=== PATIENT | male | born 1955 | race American Indian/Alaskan Native ===

== ENCOUNTER 2017-10-06 09:56 | Outpatient (CLI) | payer MEDICARE ==
--- NOTE | 2017-10-06 23:40 | Cat Scan Report ---
FINAL REPORT PROCEDURE: CT ABDOMEN PELVIS WO CON TECHNIQUE: Computerized axial tomography of the abdomen and pelvis was performed without intravenous contrast. This study is performed without intravascular contrast material and its sensitivity for abdominal and pelvic pathology, including neoplasms, inflammation, abscess, free fluid, thrombosis, arterial dissection and infarction, is reduced compared with a contrast enhanced study. HISTORY: MALIGNANT NEOPLASM OF PROSTATE COMPARISON: 08/13/2016 FINDINGS: Liver, spleen, and adrenal glands are within normal limits. Bilateral kidneys demonstrate normal density without hydronephrosis. There is a 2 millimeter nonobstructive calculus in the right kidney. Aorta is of normal caliber. There is no free fluid or free air. Gallbladder is contracted. Small bowel loops are within normal limits. Moderate degree residual stool is noted. Appendix is not distinctly visualized. There are no inflammatory changes in the right lower quadrant. Mild degree degenerative changes are noted involving the lumbar spine.. IMPRESSION: 2 millimeter nonobstructive calculus right kidney. Moderate degree residual stool. Contracted gallbladder. Otherwise no obvious acute intra-abdominal or pelvic pathology as visualized on this noncontrast study..
--- NOTE | 2017-10-07 08:22 | Nuclear Medicine Report ---
BONE SCAN: History: Staging of prostate cancer. Comparison: No previous nuclear medicine scan. Correlation is made with a CT abdomen pelvis without contrast performed the same day. After injection of isotope, gamma camera imaging of the bony system was done. There is a normal uptake of isotope throughout the bony structures without areas of pathologically increased or decreased uptake. Mild degenerative uptake is noted throughout the spine. Normal uptake in the urinary system is seen. IMPRESSION: No evidence for metastatic disease to the bones.
== END 2017-10-06 09:57 | disposition home or self-care (01) ==
LOC: NM 09:56
PROVIDERS: ATTEND Urology
DX: C61 Malignant neoplasm of prostate (principal); N20.0 Calculus of kidney; K82.8 Other specified diseases of gallbladder; M47.896 Other spondylosis, lumbar region
CPT/HCPCS: 74176; 78306; A9503

== ENCOUNTER 2017-11-21 06:01 | Observation (INO) | payer MEDICARE ==
[2017-11-15 11:46] LABS: Basophils % (Auto) 0.7 % (0.0-1.8); Eosinophils # (Auto) 0.1 K/mm3 (0.0-0.4); Eosinophils % (Auto) 2.2 % (0.0-4.3); Hematocrit 42.1 % (35.5-45.6); Hemoglobin 13.6 gm/dl (11.8-15.2); Lymphocytes # (Auto) 1.9 K/mm3 (1.2-5.4); Lymphocytes % (Auto) 30.3 % (13.4-35.0); Mean Corpuscular HGB Conc 32 % (32-34); Mean Corpuscular Hemoglobin 28 pg (28-32); Mean Corpuscular Volume 88 fl (84-94); Monocytes # (Auto) 0.6 K/mm3 (0.0-0.8); Monocytes % (Auto) 9.1 % (0.0-7.3); Platelet Count 243 K/mm3 (140-440); Red Cell Distribution Width 14.9 % (13.2-15.2)
--- NOTE | 2017-11-15 11:54 | Anesthesia Consultation ---
Anesthesia Consult and Med Hx Date of service: 11/21/17 - Airway Anesthetic Teeth Evaluation: Good ROM Head & Neck: Adequate Mental/Hyoid Distance: Adequate Mallampati Class: Class II Intubation Access Assessment: Probably Good - Pulmonary Exam CTA: Yes - Cardiac Exam Cardiac Exam: RRR - Pre-Operative Health Status ASA Pre-Surgery Classification: ASA3 Proposed Anesthetic Plan: General, Epidural Nerve Block: TAP - Pulmonary Hx Smoking: No Hx Sleep Apnea: No (DAVY PRE SCREEN HIGH RISK.) - Cardiovascular System Hx Hypertension: Yes (X 5 YRS) Hx Heart Murmur: Yes (CAUSES NO PROBLEMS) - Central Nervous System CVA: Yes (2015- NO DEFICITS , ONLY ON ASA) Hx Psychiatric Problems: Yes (anxiety. not on meds) - Endocrine Hx Insulin Dependent Diabetes: Yes - Other Systems Hx Cancer: Yes (prostrate cancer) - Additional Comments Anesthesia Medical History Comments: Glaucoma, cataract, HLD, benign heart murmur
[2017-11-15 11:56] LABS: INR 0.92 (0.87-1.13)
[2017-11-15 11:57] LABS: Partial Thromboplastin Time 26.2 Sec. (24.2-36.6)
[2017-11-15 12:02] LABS: Alanine Aminotransferase 19 units/L (7-56); Albumin 4.2 g/dL (3.9-5); BUN/Creatinine Ratio 21; Blood Urea Nitrogen 21 mg/dL (9-20); Calcium 9.6 mg/dL (8.4-10.2); Hemolysis Index 19
[~2017-11-21 06:01] MED LIST: ANCEF/STERILE WATER 2 GM/20 ML IV NR
[2017-11-21] MEDS ORDERED: NACL BACTERIOSTATIC INFILTRATI ONE (06:27)
[2017-11-21] MEDS ORDERED: DECADRON IV NR (07:10)
[2017-11-21] MEDS ORDERED: NEURONTIN PO SCH (07:15)
[2017-11-21] MEDS ORDERED: VERSED IV NR (07:15)
[2017-11-21] MEDS ORDERED: XYLOCAINE 1% 20 mL INFILTRATI NR (07:15)
[2017-11-21] MEDS ORDERED: SUBLIMAZE IV SCH (07:15)
[2017-11-21] MEDS ORDERED: NACL 0.9% 1000 ML 1,000 ML IV SCH ×2 (07:18→12:00)
[2017-11-21] MEDS ORDERED: MARCAINE 0.5% 30 ML INFILTRATI ONE ×2 (07:19→07:20)
[2017-11-21] MEDS ORDERED: CLONIDINE 1,000 MCG/10 ML VIAL EP ONE (07:20)
[2017-11-21] MEDS ORDERED: SUBLIMAZE ONE (07:22)
[2017-11-21] MEDS ORDERED: METHYLENE BLUE ONE (07:28)
[2017-11-21] MEDS ORDERED: THROMBIN (BOVINE) TP ONE ×2 (07:54→10:30)
[2017-11-21] MEDS ORDERED: ACD-A 500 ML IV ONE (07:54)
[2017-11-21] MEDS ORDERED: ZEMURON IV ONE (07:54)
[2017-11-21] MEDS ORDERED: CALCIUM CHLORIDE IV ONE ×2 (07:54→10:29)
[2017-11-21] MEDS ORDERED: XYLOCAINE MPF 2% ONE (07:54)
[2017-11-21] MEDS ORDERED: DIPRIVAN 10 MG/ML IV ONE (07:55)
[2017-11-21] MEDS ORDERED: DILAUDID ONE ×2 (07:55→12:31)
[2017-11-21] MEDS ORDERED: ePHEDrine SULFATE ONE (08:49)
[2017-11-21] MEDS ORDERED: NEO SYNEPHRINE/NS Syringe(OR USE) IV ONE (08:50)
[2017-11-21] MEDS ORDERED: ZOFRAN ONE (09:24)
[2017-11-21] MEDS ORDERED: NACL 0.9% IR ONE (10:28)
[2017-11-21] MEDS ORDERED: ACD-A IV ONE (10:29)
[2017-11-21] MEDS ORDERED: WATER FOR IRRIG STERILE IR ONE (10:29)
[2017-11-21] MEDS ORDERED: METHYLENE BLUE IV ONE (10:30)
[2017-11-21] MEDS ORDERED: D50W (25GM) Syringe IV PRN ×2 (11:12→11:19)
[2017-11-21] MEDS ORDERED: AMBIEN PO PRN (11:12)
[2017-11-21] MEDS ORDERED: NARCAN 0.4 MG/1 ML IV PRN (11:12)
[2017-11-21] MEDS ORDERED: ZOFRAN IV PRN (11:12)
[2017-11-21] MEDS ORDERED: MORPHINE IV PRN (11:12)
--- NOTE | 2017-11-21 11:12 | Short Stay Summary ---
Short Stay Documentation Date of service: 11/21/17 - History H&P: obtained from office - Allergies and Medications Current Medications: Allergies No Known Allergies Allergy (Verified 08/13/16 08:18) Home Medications Medication Instructions Recorded Confirmed Last Taken Type Aspirin BABY CHEW TAB 81 mg PO QAM 12/12/15 11/08/17 11/07/17 History Atorvastatin 80 mg PO QHS 12/12/15 11/08/17 11/20/17 17:00 History Lantus VIAL 23 units SQ QHS 12/12/15 11/21/17 11/19/17 History Lisinopril 20 mg PO QHS 12/12/15 11/08/17 11/20/17 17:00 History Metformin HCl 1,000 mg PO BID 12/12/15 11/08/17 11/20/17 17:00 History Ibuprofen [Motrin] 600 mg PO Q8H PRN #30 tablet 12/13/15 11/08/17 11/07/17 Rx Latanoprost 0.005% [Xalatan 0.005%] 1 drop OP QPM 11/15/17 11/15/17 11/20/17 17: 00 History Active Medications Cefazolin Sodium (Ancef/Sterile Water 2 Gm/20 Ml) 2 gm IV PREOP NR Stop: 11/21/17 23:59 Celecoxib (Celebrex) 200 mg PO PREOP NR Stop: 11/21/17 23:59 Last Admin: 11/21/17 07:25 Dose: 200 mg Dexamethasone (Decadron) 8 mg IV ONCE NR Stop: 11/21/17 14:00 Gabapentin (Neurontin) 600 mg PO PREOP GINNY Stop: 11/21/17 23:59 Last Admin: 11/21/17 07:25 Dose: 600 mg Sodium Chloride (Nacl 0.9% 1000 Ml) 1,000 mls @ 100 mls/hr IV DIRECT GINNY Stop: 11/21/17 23:59 Last Admin: 11/21/17 07:30 Dose: 100 mls/hr Lidocaine (Xylocaine 1% 20 Ml) 10 ml INFILTRATI PREOP NR Stop: 11/21/17 23:59 Midazolam HCl (Versed) 2 mg IV PREOP NR Stop: 11/21/17 23:59 Last Admin: 11/21/17 07:30 Dose: 2 mg - Brief post op/procedure progress note Date of procedure: 11/21/17 Pre-op diagnosis: prostate cancer Post-op diagnosis: same Procedure: robotic prostatectomy Anesthesia: GETA Surgeon: NISHANT TATUM Estimated blood loss: other (250cc) Pathology: list (prostate) Specimen disposition: to lab Condition: stable - Hospital course Hospital course: chai arriaga,post op info on chart daughter at bedside aleksandra removed - Disposition Condition at discharge: Stable Short Stay Discharge Plan Follow up with: SEBASTIÁN UNDERWOOD MD [Primary Care Provider] - 7 Days
[2017-11-21] MEDS: HumuLIN R SUB-Q SCH ×2 (11:18→23:35)
[2017-11-21] MEDS ORDERED: NACL 0.9% 1000 ML 1,000 ML ONE (11:47)
[2017-11-21] MEDS ORDERED: ANCEF/NS 1 GM/50 ML 1 GM/50 ML BAG IV SCH (12:00)
[2017-11-21] MEDS ORDERED: DILAUDID IV PRN ×2 (12:33→12:35)
--- NOTE | 2017-11-21 12:33 | Anesthesia Day of Surgery ---
Anesthesia Day of Surgery - Day of Surgery Patient Examined: Yes Patient H&P Reviewed: Yes Patient is NPO: Yes
--- NOTE | 2017-11-21 12:33 | Post Anesthesia Evaluation ---
- Post Anesthesia Evaluation Patient Participated: Yes Airway Patent: Yes Stable Respiratory Function: Yes Nausea/Vomiting: No Temp > 96.8F: Yes Pain Manageable: Yes Adequeate Hydration: Yes Anesthesia Complications: No Block Receding Appropriately: Yes Patient on Ventilator: No
--- NOTE | 2017-11-21 14:57 | Consultation ---
History of Present Illness - Reason for Consult Consult date: 11/21/17 medical management Requesting physician: NISHANT TATUM - History of Present Illness 62 year-old presents for robotic prostatectomy . Patient is status post robotic prostatectomy. Patient doing well postop. No shortness of breath Past History Past Medical History: diabetes, hypertension, hyperlipidemia Past Surgical History: Other (robotic prostatectomy) Social history: lives with family, full code Family history: hypertension Medications and Allergies Allergies Allergy/AdvReac Type Severity Reaction Status Date / Time No Known Allergies Allergy Verified 08/13/16 08:18 Home Medications Medication Instructions Recorded Confirmed Last Taken Type Aspirin BABY CHEW TAB 81 mg PO QAM 12/12/15 11/08/17 11/07/17 History Atorvastatin 80 mg PO QHS 12/12/15 11/08/17 11/20/17 17:00 History Lantus VIAL 23 units SQ QHS 12/12/15 11/21/17 11/19/17 History Lisinopril 20 mg PO QHS 12/12/15 11/08/17 11/20/17 17:00 History Metformin HCl 1,000 mg PO BID 12/12/15 11/08/17 11/20/17 17:00 History Ibuprofen [Motrin] 600 mg PO Q8H PRN #30 tablet 12/13/15 11/08/17 11/07/17 Rx Latanoprost 0.005% [Xalatan 0.005%] 1 drop OP QPM 11/15/17 11/15/17 11/20/17 17: 00 History Active Meds: Active Medications Acetaminophen/Hydrocodone Bitart (Jewell 5/325) 2 each PO Q4H PRN PRN Reason: Pain, Moderate (4-6) Atorvastatin Calcium (Lipitor) 80 mg PO QHS [facility] Cefazolin Sodium (Ancef/Sterile Water 2 Gm/20 Ml) 2 gm IV PREOP NR Stop: 11/21/17 23:59 Celecoxib (Celebrex) 200 mg PO PREOP NR Stop: 11/21/17 23:59 Last Admin: 11/21/17 07:25 Dose: 200 mg Dextrose (D50w (25gm) Syringe) 50 ml IV PRN PRN PRN Reason: Hypoglycemia Dextrose (D50w (25gm) Syringe) 50 ml IV PRN PRN PRN Reason: Hypoglycemia Gabapentin (Neurontin) 600 mg PO PREOP GINNY Stop: 11/21/17 23:59 Last Admin: 11/21/17 07:25 Dose: 600 mg Hydromorphone HCl (Dilaudid) 0.5 mg IV Q10MIN PRN PRN Reason: Pain , Severe (7-10) Last Admin: 11/21/17 12:29 Dose: 0.5 mg Sodium Chloride (Nacl 0.9% 1000 Ml) 1,000 mls @ 100 mls/hr IV DIRECT GINNY Stop: 11/21/17 23:59 Last Admin: 11/21/17 07:30 Dose: 100 mls/hr Sodium Chloride (Nacl 0.9% 1000 Ml) 1,000 mls @ 100 mls/hr IV DIRECT GINNY Cefazolin Sodium 1 gm/ Sodium (Chloride) 20 mls @ 2 mls/min IV Q8H GINNY Stop: 11/21/17 23:09 Insulin Glargine (Lantus) 23 units SUB-Q QHS [facility] Insulin Human Regular (Humulin R) 0 units SUB-Q AC GINNY; Protocol Lidocaine (Xylocaine 1% 20 Ml) 10 ml INFILTRATI PREOP NR Stop: 11/21/17 23:59 Lisinopril (Zestril) 20 mg PO HS [facility] Metformin HCl (Glucophage) 1,000 mg PO BIDDIAB [facility] Midazolam HCl (Versed) 2 mg IV PREOP NR Stop: 11/21/17 23:59 Last Admin: 11/21/17 07:30 Dose: 2 mg Morphine Sulfate (Morphine) 2 mg IV Q4H PRN PRN Reason: Pain, Moderate (4-6) Naloxone HCl (Narcan 0.4 Mg/1 Ml) 0.1 mg IV Q2MIN PRN PRN Reason: Res Rate </= 8 or 02 SAT < 92% Ondansetron HCl (Zofran) 4 mg IV Q8H PRN PRN Reason: Nausea And Vomiting Zolpidem Tartrate (Ambien) 5 mg PO QHS PRN PRN Reason: Sleep Review of Systems All systems: negative Constitutional: no weight loss, no weight gain, no fever, no chills, no sweats, no night sweats Ears, nose, mouth and throat: no dysphagia, no hoarseness, no sore throat, no swelling in mouth, no swelling in throat, no odynophagia Cardiovascular: no chest pain, no orthopnea, no palpitations, no rapid/ irregular heart beat, no edema, no syncope, no lightheadedness, no shortness of breath Respiratory: no cough, no cough with sputum, no excessive sputum, no hemoptysis , no shortness of breath, no dyspnea on exertion Gastrointestinal: no abdominal pain, no nausea, no vomiting, no diarrhea, no constipation, no change in bowel habits, no hematemesis, no coffee ground emesis Genitourinary Male: hematuria, no dysuria, no flank pain, no discharge, no urinary frequency, no urinary hesitancy, no nocturia Rectal: no pain Musculoskeletal: no neck stiffness, no neck pain, no shooting arm pain, no arm numbness/tingling, no low back pain, no shooting leg pain, no leg numbness/ tingling, no redness of joints Integumentary: no rash, no pruritis, no redness, no sores, no wounds, no jaundice, no boils, no blisters Neurological: no seizures, no syncope Psychiatric: no anxiety, no memory loss, no change in sleep habits, no sleep disturbances, no insomnia, no hypersomnia, no change in appetite, no change in libido, no suicidal ideation, no disorientation, no hallucinations Endocrine: no cold intolerance, no heat intolerance, no polyphagia, no excessive thirst, no polydipsia, no polyuria, no nocturia, no excessive sweating , no flushing, no weight change Hematologic/Lymphatic: no easy bruising, no easy bleeding Allergic/Immunologic: no urticaria, no allergic rhinitis, no wheezing Exam - Physical Exam Narrative exam: Patient lying in bed comfortably - Constitutional Vitals: Temp Pulse Resp BP Pulse Ox 98.0 F 76 16 105/59 96 11/21/17 13:34 11/21/17 13:34 11/21/17 13:34 11/21/17 13:34 11/21/17 13:34 General appearance: Present: no acute distress, well-nourished - EENT Eyes: Present: PERRL ENT: hearing intact, clear oral mucosa - Neck Neck: Present: supple, normal ROM - Respiratory Respiratory effort: normal Respiratory: bilateral: CTA - Cardiovascular Heart rate: 70 Rhythm: regular (70) Heart Sounds: Present: S1 & S2. Absent: rub, click - Extremities Extremities: no ischemia, pulses intact, pulses symmetrical, No edema Peripheral Pulses: within normal limits - Abdominal General gastrointestinal: Present: soft, non-tender, non-distended, normal bowel sounds Male genitourinary: Present: normal - Rectal Rectal Exam: deferred - Integumentary Integumentary: Present: clear, warm, dry - Musculoskeletal Musculoskeletal: gait normal, strength equal bilaterally - Psychiatric Psychiatric: appropriate mood/affect, intact judgment & insight - Neurologic Neurologic: CNII-XII intact, moves all extremities - Allied Health Allied health notes reviewed: nursing, case management Results - Labs CBC & Chem 7: 11/15/17 11:30 11/15/17 11:30 Labs: Abnormal lab results 11/21/17 11/21/17 Range/Units 06:47 11:38 POC Glucose 113 H 157 H (70-105) Assessment and Plan - Patient Problems (1) Deficient knowledge of robotic prostatectomy Current Visit: Yes Status: Acute (2) S/P prostatectomy Current Visit: Yes Status: Acute Plan to address problem: Status post robotic prostatectomy. Postop patient doing well. 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 Check A1c and adjust medication accordingly (5) Hyperlipidemia Current Visit: Yes Status: Chronic Qualifiers: Hyperlipidemia type: mixed hyperlipidemia Qualified Code(s): E78.2 - Mixed hyperlipidemia Plan to address problem: Continue statins (6) DVT prophylaxis Current Visit: Yes Status: Acute Plan to address problem: no heparin Lovenox at this time because of the hematuria On the SCDs
[2017-11-21] MEDS ORDERED: ceFAZolin 1 GM in NACL 0.9% 20 ML IV SCH (15:00)
[2017-11-21] MEDS: HumaLOG SUB-Q SCH ×2 (17:05→22:13)
[2017-11-21] MEDS: GLUCOPHAGE PO SCH (19:04)
--- NOTE | 2017-11-21 20:06 | Operative Report ---
PREOPERATIVE DIAGNOSIS: Prostate cancer, PSA 32, Ayan score 6 (2 of 14 cores). POSTOPERATIVE DIAGNOSES: Prostate cancer, PSA 32, Ayan score 6 (2 of 14 cores). PROCEDURE: Robotic-assisted laparoscopic prostatectomy. SURGEON: Norris Macias M.D. UNINDENTURED APPRENTICE: Ira Nixon. ANESTHESIA: General. ESTIMATED BLOOD LOSS: 250 mL. FLUIDS: Crystalloid 125 mL of Cell Saver. COMPLICATIONS: No complications. INDICATIONS: This 62-year-old gentleman has been seen in the office for several years. We followed with his PSA for years. He was last seen on 09/05/2014 for a PSA of 5.3. Biopsy at that time was negative. He represented in August of this year with a PSA of 32. Transrectal ultrasound revealed Ayan 6 adenocarcinoma of the prostate in 2 of 14 cores, [address] bone scan negative except for degenerative joint disease of the spine. Options were discussed. The patient agreed to proceed with surgical intervention. DESCRIPTION OF PROCEDURE: The patient was taken to the operative suite, placed in a supine position. After adequate general anesthesia, he was placed in a modified dorsal lithotomy position. Ira Nixon, surgical dressing maker, was present throughout the procedure, who was at the bedside to assist with dissection. Aguilar catheter was placed on the operative field. A 1 cm supraumbilical incision was made. Towel clips were placed. Anterior traction was performed. A drop test with a Veress needle was negative. Opening pressure was 1 cm of water. Insufflation to 15 cm of water was performed without difficulty. 15 cm cephalad to pubic symphysis was marked in the midline. The patient had a narrow pelvis and actually 8 cm lateral and additional 8 cm lateral was used to place the robotic ports. These areas were marked. 0-degree lens was placed in the supraumbilical incision under direct vision. No intraabdominal injury could be appreciated. No signs of metastasis. The robotic ports were placed on the left side without difficulty. They were 8 mm in size, right side was one robotic port followed by a 10 mm and a 5 mm helper port that were placed under direct vision. Robotic cart was docked between the legs. Second, the posterior aspect of the bladder was retracted anteriorly with the third arm. Second arch was scored transversely exposing the seminal vesicles and vas deferens, which were dissected out. Dissection was taken to the apex of the prostate. Vas deferens was transected bilaterally. Next, attention was taken to the anterior abdominal wall. The lateral umbilical ligament was scored and then across the midline, pubic rami were identified bilaterally. Bladder flap was dropped. Dorsal vein complex was exposed. It was tied off with 0 Vicryl in a [id number] fashion. Endopelvic fascia was opened bilaterally. Dissection to the bladder neck was performed. Aguilar catheter was manipulated to expose the bladder neck. Anterior bladder neck was transected. The Aguilar was deflated and then used for anterior traction. The patient had a significant median lobe and methylene blue was administered intravenously to identify the ureteral orifices without difficulty. 0 Vicryl helper stitch was placed at the 12 o'clock position of the bladder. Posterior bladder neck was transected exposing the seminal vesicles and vas deferens. Lateral pedicles were sharply dissected using the vic, occasional cautery to control bleeding. The prostate was dissected free from the apex and placed in the EndoCatch bag and retracted laterally. Next, attention was taken at the bladder neck where it was tapered down to accommodate an 18-[place] Aguilar catheter, 2-0 Vicryl in interrupted fashion was used. Double armed V-Loc stitch was placed at the 6 o'clock position of the bladder neck and corresponding aspect of the urethra. Running stitch was performed bilaterally. A new Aguilar catheter was placed in the bladder. Anastomotic stitch was cinched down. 15 mL of water in the balloon, the bladder was irrigated. No clots. V-Loc stitch was then placed at the anterior abdominal wall to aid with continence. The needles were cut and removed. The anastomosis was injected with platelet-rich plasma, platelet poor plasma in addition to platelet membrane. Adequate hemostasis could be appreciated. Casper-Oro drain was brought out through the #2 right-sided port without difficulty. The drain was tied into position with a 2-0 silk. Robotic cart was undocked. The patient was placed in a supine position. The supraumbilical incision was extended to remove the prostate. That incision was closed with #1 Vicryl in a [id number] fashion. Skin was closed with 4-0 Monocryl in interrupted fashion. Aguilar catheter site port was folded over and tied with 0 silk in interrupted fashion to prevent removal. The patient was extubated and taken to recovery room in stable condition. He will be observed overnight and go home on [place] and Cipro. JOB# [id number] VASQUEZ/NTS
[2017-11-21] MEDS: NORCO 5/325 PO PRN (20:45)
[2017-11-21] MEDS ORDERED: LANTUS SUB-Q SCH (22:00)
[2017-11-21] MEDS ORDERED: INSULIN GLARGINE SQ SCH (22:00)
[2017-11-21] MEDS ORDERED: NON-FORMULARY (Lisinopril 20 MG) PO SCH (22:00)
[2017-11-21] MEDS ORDERED: NON-FORMULARY (Atorvastatin 80 MG) PO SCH (22:00)
[2017-11-21] MEDS ORDERED: ZESTRIL PO SCH (22:00)
[2017-11-21] MEDS ORDERED: METFORMIN HCL 1000 MG PO SCH (22:00)
[2017-11-22] MEDS: ceFAZolin 1 GM in NACL 0.9% 20 ML IV SCH ×2 (01:20→10:06)
[2017-11-22 05:11] LABS: Basophils % (Auto) 0.1 % (0.0-1.8); Hematocrit 35.9 % (35.5-45.6); Hemoglobin 11.9 gm/dl (11.8-15.2); Lymphocytes # (Auto) 0.8 K/mm3 (1.2-5.4); Lymphocytes % (Auto) 7.3 % (13.4-35.0); Mean Corpuscular HGB Conc 33 % (32-34); Mean Corpuscular Hemoglobin 29 pg (28-32); Mean Corpuscular Volume 87 fl (84-94); Monocytes # (Auto) 0.8 K/mm3 (0.0-0.8); Monocytes % (Auto) 7.5 % (0.0-7.3); Platelet Count 189 K/mm3 (140-440); Red Blood Count 4.11 M/mm3 (3.65-5.03); Red Cell Distribution Width 14.3 % (13.2-15.2)
[2017-11-22 05:31] LABS: BUN/Creatinine Ratio 24; Blood Urea Nitrogen 24 mg/dL (9-20); Calcium 7.9 mg/dL (8.4-10.2); Hemolysis Index 6
[2017-11-22] MEDS: HumaLOG SUB-Q SCH (07:33)
[2017-11-22] MEDS: HumuLIN R SUB-Q SCH (07:34)
[2017-11-22 09:17] VITALS: BP 111/63
[2017-11-22] MEDS: GLUCOPHAGE PO SCH (09:29)
[2017-11-22] MEDS: NORCO 5/325 PO PRN (09:29)
== END 2017-11-22 12:00 | disposition home or self-care (01) ==
LOC: OR 06:01 → 3B-SURG 11:12
PROVIDERS: ADMIT Urology; ATTEND Urology
DX: C61 Malignant neoplasm of prostate (principal); I10 Essential (primary) hypertension; E11.9 Type 2 diabetes mellitus without complications; E78.5 Hyperlipidemia, unspecified; F41.9 Anxiety disorder, unspecified; Z80.42 Family history of malignant neoplasm of prostate; Z86.73 Personal history of transient ischemic attack (TIA), and cerebral infarction without residual deficits
CPT/HCPCS: 36415; 55866; 80048; 80053; 82962; 83036; 85025; 85610; 85730; 86850; 86900; 86901; 88309; 96372; 96374; 96375; 96376; A4217; A9270; G0378; J0690; J0735; J1100; J1170; J2250; J2370; J2405; J2704; J7030; Q9968; J1815; J3010

== ENCOUNTER 2017-12-12 09:16 | Outpatient (CLI) | payer MEDICARE ==
--- NOTE | 2017-12-12 14:22 | Cat Scan Report ---
CT ABDOMEN PELVIS WITHOUT CONTRAST: HISTORY: Malignant neoplasm of prostate. COMPARISON: 10/06/17. TECHNIQUE: Helical CT in 1.25mm intervals without IV contrast. Sagittal and coronal reconstructions. FINDINGS: Lung bases: Well aerated. Normal heart size. Liver: Normal. Biliary system: Normal. Pancreas: Normal. Spleen: Normal. Kidneys/ureters/bladder: The kidneys are normal size, contour and position. 2 tiny calyceal stones are noted in the mid to inferior right kidney. The left kidney, ureters and bladder are unremarkable. Adrenal glands: Normal. Aorta: Normal. Intestines: There is moderate to severe fecal retention throughout the length of the colon. No evidence for bowel obstruction or focal inflammation. Appendix: Not confidently identified, correlate with surgical history. Pelvic viscera: Normal. Ascites: None. Adenopathy: None. Musculoskeletal: There is moderate thoracolumbar spondylosis. No suspicious bony lesion or fracture is identified. IMPRESSION: No evidence for metastatic to the abdomen or pelvis. No bony lesions are detected Right nephrolithiasis, nonobstructing. Constipation.
== END 2017-12-12 09:17 | disposition home or self-care (01) ==
LOC: CT 09:16
PROVIDERS: ATTEND Urology
DX: C61 Malignant neoplasm of prostate (principal); N39.0 Urinary tract infection, site not specified; N20.0 Calculus of kidney; M47.895 Other spondylosis, thoracolumbar region; K59.00 Constipation, unspecified; I10 Essential (primary) hypertension; E11.9 Type 2 diabetes mellitus without complications
CPT/HCPCS: 74176

== ENCOUNTER 2018-02-16 11:08 | Emergency (ER) | payer MEDICARE ==
--- NOTE | 2018-02-16 14:41 | Emergency Department Report ---
ED Dizziness HPI - General Chief Complaint: Dizziness Stated Complaint: DIZZINESS Time Seen by Provider: 02/16/18 14:01 Source: patient Mode of arrival: Ambulatory Limitations: No Limitations - History of Present Illness Initial Comments: Patient is a 62-year-old male who states he's had dizziness off and on for 2-3 months. Patient states sometimes it feels as though he spent a time and then it goes away on its own. It lasts for anywhere from several seconds to several minutes at a time. Patient denies any ringing of the ears headache and sinus pressure she called "congestion and fevers chills Or weakness. Patient does have a history of diabetes but his blood sugars under control. Patient did have a stroke several years ago and has seen a neurologist in the past but has not seen anyone for this the symptoms. - Related Data Home Medications Medication Instructions Recorded Confirmed Last Taken Aspirin BABY CHEW TAB 81 mg PO QAM 12/12/15 11/08/17 11/07/17 Atorvastatin 80 mg PO QHS 12/12/15 11/08/17 11/20/17 17:00 Lantus VIAL 23 units SQ QHS 12/12/15 11/21/17 11/19/17 Lisinopril 20 mg PO QHS 12/12/15 11/08/17 11/20/17 17:00 Metformin HCl 1,000 mg PO BID 12/12/15 11/08/17 11/20/17 17:00 Latanoprost 0.005% [Xalatan 0.005%] 1 drop OP QPM 11/15/17 11/15/17 11/20/17 17: 00 Previous Rx's Medication Instructions Recorded Last Taken Type Ibuprofen [Motrin] 600 mg PO Q8H PRN #30 tablet 12/13/15 11/07/17 Rx Meclizine [Antivert] 25 mg PO TID PRN #20 tablet 02/16/18 Unknown Rx Allergies Allergy/AdvReac Type Severity Reaction Status Date / Time No Known Allergies Allergy Verified 08/13/16 08:18 ED Review of Systems ROS: Stated complaint: DIZZINESS Other details as noted in HPI Comment: All other systems reviewed and negative ED Past Medical Hx - Past Medical History Hx Hypertension: Yes (X 5 YRS) Hx CVA: Yes Hx Diabetes: Yes Hx HIV: No Additional medical history: HIGH CHOLESTEROL - Surgical History Additional Surgical History: left shoulder x 2 - Social History Smoking Status: Current Every Day Smoker Substance Use Type: None - Medications Home Medications: Home Medications Medication Instructions Recorded Confirmed Last Taken Type Aspirin BABY CHEW TAB 81 mg PO QAM 12/12/15 11/08/17 11/07/17 History Atorvastatin 80 mg PO QHS 12/12/15 11/08/17 11/20/17 17:00 History Lantus VIAL 23 units SQ QHS 12/12/15 11/21/17 11/19/17 History Lisinopril 20 mg PO QHS 12/12/15 11/08/17 11/20/17 17:00 History Metformin HCl 1,000 mg PO BID 12/12/15 11/08/17 11/20/17 17:00 History Ibuprofen [Motrin] 600 mg PO Q8H PRN #30 tablet 12/13/15 11/08/17 11/07/17 Rx Latanoprost 0.005% [Xalatan 0.005%] 1 drop OP QPM 11/15/17 11/15/17 11/20/17 17: 00 History Meclizine [Antivert] 25 mg PO TID PRN #20 tablet 02/16/18 Unknown Rx ED Physical Exam - General Limitations: No Limitations General appearance: alert, in no apparent distress - Head Head exam: Present: atraumatic, normocephalic - Eye Eye exam: Present: normal appearance - ENT ENT exam: Present: mucous membranes moist - Neck Neck exam: Present: normal inspection - Respiratory Respiratory exam: Present: normal lung sounds bilaterally. Absent: respiratory distress - Cardiovascular Cardiovascular Exam: Present: regular rate, normal rhythm. Absent: systolic murmur, diastolic murmur, rubs, gallop - GI/Abdominal GI/Abdominal exam: Present: soft, normal bowel sounds - Rectal Rectal exam: Present: deferred - Extremities Exam Extremities exam: Present: normal inspection - Back Exam Back exam: Present: normal inspection - Neurological Exam Neurological exam: Present: alert, oriented X3, CN II-XII intact, normal gait. Absent: motor sensory deficit - Psychiatric Psychiatric exam: Present: normal affect, normal mood - Skin Skin exam: Present: warm, dry, intact, normal color. Absent: rash ED Course Vital Signs 02/16/18 11:12 Temperature 97.8 F Pulse Rate 93 H Respiratory 16 Rate Blood Pressure 139/80 O2 Sat by Pulse 98 Oximetry ED Medical Decision Making - Medical Decision Making Physical timing of the patient's symptoms patient will be referred to neurology. Patient started on Antivert to see if this will help with his symptoms patient be discharged home. Critical care attestation.: If time is entered above; I have spent that time in minutes in the direct care of this critically ill patient, excluding procedure time. ED Disposition Clinical Impression: Vertiginous syndrome Disposition: TO HOME OR SELFCARE Is pt being admited?: No Does the pt Need Aspirin: No Condition: Stable Instructions: Vertigo (ED) Prescriptions: Meclizine [Antivert] 25 mg PO TID PRN #20 tablet PRN Reason: Vertigo Referrals: FILIPE JOHN MD [Staff Physician] - 3-5 Days
[2018-02-16 14:52] VITALS: BP 133/78
== END 2018-02-16 14:52 | disposition home or self-care (01) ==
LOC: ED 11:08
DX: H81.8X9 Other disorders of vestibular function, unspecified ear (principal); I10 Essential (primary) hypertension; E11.9 Type 2 diabetes mellitus without complications; E78.00 Pure hypercholesterolemia, unspecified; F17.200 Nicotine dependence, unspecified, uncomplicated; Z86.73 Personal history of transient ischemic attack (TIA), and cerebral infarction without residual deficits
CPT/HCPCS: 99282

== ENCOUNTER 2019-03-02 10:33 | Outpatient (CLI) | payer MEDICARE ==
--- NOTE | 2019-03-02 12:37 | Cat Scan Report ---
CT ABDOMEN AND PELVIS WITHOUT CONTRAST HISTORY: RECURRENT PROSTATE CANCER COMPARISON: None. TECHNIQUE: Axial CT images were obtained through the abdomen and pelvis without IV contrast. Sagittal and coronal reformatted images. All CT scans at this location are performed using CT dose reduction for ALARA by means of automated exposure control. FINDINGS: CT ABDOMEN: Lung Bases: Clear. Liver: No significant abnormality. Biliary: No significant abnormality. Spleen: No significant abnormality. Unenlarged. Pancreas: No significant abnormality. Adrenals: No significant abnormality. Kidneys: No significant abnormality. Lymphatics: No lymphadenopathy. Vasculature: No significant abnormality. Bowel/Peritoneum: No significant abnormality. No free air. No free fluid. The appendix is not confide ntly identified. CT PELVIS: : No significant abnormality. Osseous Structures: No evidence for fracture, malalignment or suspicious bony lesion. Moderate thorac olumbar spondylosis is identified. Additional Findings: None IMPRESSION: No evidence for metastatic disease in the abdomen or pelvis. Signer Name: Gianluca Johnson Jr, MD Signed: 03/02/2019 12:32 PM Workstation Name: [id number]
--- NOTE | 2019-03-02 12:43 | Cat Scan Report ---
CT CHEST WITHOUT CONTRAST INDICATION / CLINICAL INFORMATION: RECURRENT PROSTATE CANCER. TECHNIQUE: Axial CT images were obtained through the chest without contrast. Sagittal and coronal reformatted im ages. All CT scans at this location are performed using CT dose reduction for ALARA by means of autom ated exposure control. COMPARISON: None available. FINDINGS: HEART: The heart is normal size. No pericardial effusion. Moderate to severe three-vessel coronary ar russell calcifications are identified. THORACIC AORTA: No significant abnormality. MEDIASTINUM and AISHA: No significant abnormality. LUNGS: No acute air space or interstitial disease. No evidence for pulmonary nodule or mass. PLEURA: No significant pleural effusion. No pneumothorax. ADDITIONAL FINDINGS: None. SKELETAL SYSTEM: Moderate to severe multilevel degenerative disc disease is noted in the thoracic spi ne. No fracture or suspicious bony lesion. IMPRESSION: No evidence for metastatic disease to the chest. Coronary artery calcifications. Thoracic spondylosis. Signer Name: Gianluca Johnson Jr, MD Signed: 03/02/2019 12:38 PM Workstation Name: [id number]
== END 2019-03-02 10:34 | disposition home or self-care (01) ==
LOC: CT 10:33
PROVIDERS: ATTEND Radiology Radiation Oncology
DX: I25.10 Atherosclerotic heart disease of native coronary artery without angina pectoris (principal); M47.814 Spondylosis without myelopathy or radiculopathy, thoracic region; M51.34 Other intervertebral disc degeneration, thoracic region; C61 Malignant neoplasm of prostate; E78.00 Pure hypercholesterolemia, unspecified; I10 Essential (primary) hypertension; E11.9 Type 2 diabetes mellitus without complications
CPT/HCPCS: 71250; 74176

== ENCOUNTER 2019-06-12 08:22 | Day surgery (SDC) | payer MEDICARE ==
[2019-06-12] MEDS ORDERED: ECOTRIN PO ONE (08:47)
[2019-06-12] MEDS ORDERED: NACL 0.9% 500 ML 500 ML IV SCH (09:00)
[2019-06-12 09:38] LABS: Hematocrit 39.6 % (35.5-45.6); Mean Corpuscular HGB Conc 33 % (32-34); Mean Corpuscular Volume 89 fl (84-94); Platelet Count 218 K/mm3 (140-440); Red Blood Count 4.46 M/mm3 (3.65-5.03); Red Cell Distribution Width 14.1 % (13.2-15.2)
[2019-06-12 09:45] LABS: INR 0.99 (0.87-1.13)
[2019-06-12 10:16] LABS: BUN/Creatinine Ratio 20; Blood Urea Nitrogen 16 mg/dL (9-20); Calcium 9.3 mg/dL (8.4-10.2); Hemolysis Index 9
[2019-06-12] MEDS ORDERED: HEPARIN/NS 5000 UNIT/500ML(CATH LAB) 1,000 ML IR ONE (10:18)
[2019-06-12 10:55] LABS: Total Cells Counted 100
[2019-06-12 10:56] LABS: Anisocytosis Few; Platelet Estimate Consistent w Auto; Poikilocytosis Few
[2019-06-12] MEDS: XYLOCAINE 2% INFILTRATI ONE ×2 (10:57→11:14)
[2019-06-12] MEDS: SUBLIMAZE ONE ×2 (10:57→11:13)
[2019-06-12] MEDS: VERSED ONE ×2 (10:57→11:13)
[2019-06-12] MEDS: CALAN ONE ×2 (10:58→11:15)
[2019-06-12] MEDS: HEPARIN 10,000 UNITS/10 ML ONE ×2 (10:58→11:15)
[2019-06-12] MEDS: NITROGLYCERIN SYRINGE 3 ML ONE ×2 (10:59→11:15)
--- NOTE | 2019-06-12 11:52 | Discharge Summary ---
Short Stay Discharge Plan Activity: advance as tolerated Weight Bearing Status: Full Weight Bearing Diet: low fat, low cholesterol, low salt Wound: keep clean and dry Special Instructions: no heavy lifting (3 days), hold Metformin (48hours) Additional Instructions: HOLD METFORMIN 48 HOURS ONLY Follow up with: SEBASTIÁN UNDERWOOD MD [Primary Care Provider] - 7 Days MASTER TALBOT MD [Staff Physician] - 7 Days
[2019-06-12] MEDS ORDERED: NACL 0.9% 1000 ML 1,000 ML IV SCH (12:00)
--- NOTE | 2019-06-12 12:02 | Cardiac Catherization Report ---
CARDIAC CATHETERIZATION REPORT REASON FOR PROCEDURE: Exertional dyspnea and cardiomyopathy. PROCEDURES: 1. Left heart catheterization. 2. Selective left and right coronary angiography. 3. Left ventricular angiography. 4. Sedation time, start 11:13, end 11:30. DESCRIPTION OF PROCEDURE: The patient was prepped and draped in a sterile fashion after informed consent. The right radial cath site was prepped and draped after a negative Judson's test. The right radial artery was entered using Seldinger technique followed by placement of a 6-Malay hydrophilic sheath. Routine radial cocktail was administered via the sheath. Left coronary angiography was performed using a #3.5 left Jonny catheter. A #4 right Jonny was used for right coronary angiography. A pigtail catheter was used for left ventricle angiography. The catheters were removed, sheath removed and hemostasis achieved using a TR band. The patient was returned to the post-procedure unit in stable condition. There were no complications. FINDINGS: HEMODYNAMICS: Left ventricular end-diastolic pressure was 25, following coronary angiography. Ascending aortic pressure was 146/82. There was no significant pressure gradient on pullback across the aortic valve. CORONARY ANGIOGRAPHY: There was moderate diffuse coronary calcification, chiefly involving the proximal and mid segments of the left anterior descending artery. The left main coronary artery contained mild luminal irregularities. The left anterior descending artery contained diffuse mild atherosclerosis of its proximal and mid segments, associated with moderate diffuse coronary calcification. The diagonal branches also contained diffuse mild atherosclerosis. No significant obstructive lesions were noted in the LAD system. The circumflex artery contained mild luminal irregularities in its proximal and mid segments. Further distally, in the terminal branch of the distal obtuse marginal, there was a 70% stenosis noted. This lesion was in the terminal small caliber branch of the circumflex system. The right coronary artery was dominant. This vessel contained diffuse mild atherosclerosis of its proximal and mid segment. The right posterior descending branch was a small caliber vessel that contained diffuse [id number] atherosclerosis. There was mild left ventricular systolic dysfunction, ejection fraction 45-50%. CONCLUSION: 1. Coronary artery disease as above with diffuse small vessel disease of the distal circumflex and distal right coronary arteries. 2. Mild left ventricular systolic dysfunction, ejection fraction 45-50%. RECOMMENDATIONS: 1. Aggressive risk factor modification. 2. Medical therapy for small vessel disease. If there is angina despite optimal medical therapy, the patient can be considered in the future for coronary intervention to the distal circumflex artery with a small caliber 2.25 mm coronary stent. [facility]# [id number] PAULETTE/CLIFFORD
[2019-06-12 16:40] VITALS: BP 148/78
== END 2019-06-12 08:23 | disposition home or self-care (01) ==
LOC: CATHLABREC 08:22
PROVIDERS: ATTEND Internal Medicine Cardiovascular Disease
DX: I42.9 Cardiomyopathy, unspecified (principal); I25.10 Atherosclerotic heart disease of native coronary artery without angina pectoris; R06.09 Other forms of dyspnea; R07.89 Other chest pain; I10 Essential (primary) hypertension; E11.39 Type 2 diabetes mellitus with other diabetic ophthalmic complication; H40.9 Unspecified glaucoma; F41.9 Anxiety disorder, unspecified; E78.5 Hyperlipidemia, unspecified; Z79.899 Other long term (current) drug therapy; Z79.82 Long term (current) use of aspirin; Z98.890 Other specified postprocedural states; Z90.49 Acquired absence of other specified parts of digestive tract; Z87.440 Personal history of urinary (tract) infections; Z85.46 Personal history of malignant neoplasm of prostate; Z98.49 Cataract extraction status, unspecified eye; Z88.8 Allergy status to other drugs, medicaments and biological substances; Z86.73 Personal history of transient ischemic attack (TIA), and cerebral infarction without residual deficits
CPT/HCPCS: 36415; 80048; 85007; 85025; 85610; 85730; 93005; 93010; 93458; 99156; C1894; J1644; J2250; J3010; J7040; Q9967

== ENCOUNTER 2019-07-09 07:38 | Observation (INO) | payer MEDICARE ==
[2019-07-09] MEDS ORDERED: ASPIRIN 325 MG TAB PO ONE (07:52)
[2019-07-09 08:19] LABS: Basophils % (Auto) 0.9 % (0.0-1.8); Eosinophils # (Auto) 0.4 K/mm3 (0.0-0.4); Eosinophils % (Auto) 10.2 % (0.0-4.3); Hematocrit 42.3 % (35.5-45.6); Lymphocytes # (Auto) 0.9 K/mm3 (1.2-5.4); Mean Corpuscular HGB Conc 33 % (32-34); Mean Corpuscular Volume 88 fl (84-94); Monocytes # (Auto) 0.4 K/mm3 (0.0-0.8); Monocytes % (Auto) 8.6 % (0.0-7.3); Platelet Count 238 K/mm3 (140-440); Red Blood Count 4.83 M/mm3 (3.65-5.03); Red Cell Distribution Width 14.1 % (13.2-15.2)
--- NOTE | 2019-07-09 08:35 | Emergency Department Report ---
HPI - General Chief Complaint: Chest Pain Time Seen by Provider: 07/09/19 08:20 - HPI HPI: Room 3 The pt is a 63 y/o M p/w a cc of CP and L flank pain. The patient states his symptoms began approximately 2-3 days ago with pain in his left flank. The pa tient states the pain has been intermittent and sharp in nature. Patient states that sometime a positional component. Patient denies dysuria or hematuria. Patient admits to nausea but denies vomiting. Patient states last night he developed intermittent pain in the left chest. Patient denies any history of fever. Patient currently gets his chest pain score of 3/10 and is flank pain score of 7/10. The patient states she had a cardiac catheterization last month showed "a few blockages." Location: [See above] Duration: [See above] Quality: [See above] Severity: [See above] Timing: [See above] Context: [See above] Modifying factors: [See above] Associated signs and symptoms: [see above] ED Past Medical Hx - Past Medical History Previous Medical History?: Yes Hx Hypertension: Yes (X 5 YRS) Hx CVA: Yes Hx Diabetes: Yes Hx of Cancer: Yes (states CA s/p prostatectomy, xrt) Additional medical history: HIGH CHOLESTEROL - Surgical History Past Surgical History?: Yes Additional Surgical History: left shoulder x 2, prostatectomy - Family History Family history: no significant - Social History Smoking Status: Never Smoker Substance Use Type: None - Medications Home Medications: Home Medications Medication Instructions Recorded Confirmed Last Taken Type Aspirin BABY CHEW TAB 81 mg PO QAM 12/12/15 07/09/19 06/11/19 History 1 tab Atorvastatin 80 mg PO QHS 12/12/15 07/09/19 06/11/19 History 1 tab Lantus VIAL 16 units SQ QHS 12/12/15 07/09/19 06/11/19 History 1 tab Lisinopril 20 mg PO QHS 12/12/15 07/09/19 06/11/19 History 1 tab Ibuprofen [Motrin 600 MG tab] 600 mg PO Q8H PRN #30 tablet 12/13/15 07/09/19 11/07/17 Rx Latanoprost 0.005% 1 drop OP QPM 11/15/17 07/09/19 06/11/19 History 1 drop Meclizine [Antivert] 25 mg PO TID PRN #20 tablet 02/16/18 07/09/19 Unknown Rx Bicalutamide 50 mg PO DAILY 06/12/19 07/09/19 06/11/19 History 1 tab Ranolazine ER [Ranexa ER] 500 mg PO BID 07/09/19 07/09/19 Unknown History carvediloL [Coreg] 6.25 mg PO BID 07/09/19 07/09/19 Unknown History ED Review of Systems ROS: Stated complaint: CP Other details as noted in HPI Constitutional: denies: fever Eyes: denies: eye pain ENT: denies: throat pain Respiratory: no symptoms reported Cardiovascular: chest pain Endocrine: no symptoms reported Gastrointestinal: nausea. denies: abdominal pain, vomiting Genitourinary: denies: dysuria, hematuria Musculoskeletal: back pain Neurological: denies: headache Physical Exam - Physical Exam Vital Signs: Vital Signs 07/09/19 07:51 Temperature 98.4 F Pulse Rate 100 H Respiratory 16 Rate Blood Pressure 139/86 O2 Sat by Pulse 99 Oximetry Physical Exam: GENERAL: The patient is well-developed well-nourished male lying on stretcher not appearing to be in acute distress. [] HEENT: Normocephalic. Atraumatic. Extraocular motions are intact. Patient has moist mucous membranes. NECK: Supple. Trachea midline CHEST/LUNGS: Clear to auscultation. There is no respiratory distress noted. HEART/CARDIOVASCULAR: Regular. There is no tachycardia. There is no gallop rub or murmur. ABDOMEN: Abdomen is soft, nontender. Patient has normal bowel sounds. There is no abdominal distention. SKIN: There is no rash. There is no edema. There is no diaphoresis. NEURO: The patient is awake, alert, and oriented. The patient is cooperative. The patient has no focal neurologic deficits. The patient has normal speech and gait. MUSCULOSKELETAL: There is mild left CVA tenderness. There is no evidence of acute injury. ED Course Vital Signs 07/09/19 07:51 Temperature 98.4 F Pulse Rate 100 H Respiratory 16 Rate Blood Pressure 139/86 O2 Sat by Pulse 99 Oximetry - Consultations Consultation #1: 07/09/19 09:21 Case discussed with cardiology Nick. Will discuss with Dr. Deutsch and call back 07/09/19 09:24 Nick discussed the case with Dr. Deutsch and he recommends the patient be admitted to the hospital ED Medical Decision Making - Lab Data Result diagrams: 07/09/19 07:57 07/09/19 07:57 - EKG Data -: EKG Interpreted by Me EKG shows normal: sinus rhythm Rate: normal - EKG Data When compared to previous EKG there are: no significant change Interpretation: unchanged when compared t (06/12/2019) - Radiology Data Radiology results: report reviewed (CT chest, CT abdomen and pelvis), image reviewed (CT chest, CT abdomen and pelvis) [facility] [address] [place] [address] Cat Scan Report Signed Patient: LARRY MCDERMOTT MR# : [id number] : 1955 Acct:[id number] Age/Sex: 63 / M ADM Date: 07/09/19 Loc: ED Attending Dr: Ordering Physician: YEHUDA SINGH MD Date of Service: 07/09/19 Procedure(s): CT angio chest Accession Number(s): [id number] cc: YEHUDA SINGH MD CTA CHEST WITH CONTRAST INDICATION : left CP. TECHNIQUE: Axial imaging performed through the chest, with contrast bolus timing set to maximize opacification of the pulmonary arteries. 3-plane MIP reformatted images were obtained. All CT scans at this location are performed using CT dose reduction for ALARA by means of automated exposure control. 100 mL of intravenous contrast administered. Consent was obtained prior to the administration of the contrast. COMPARISON: No other relevant prior imaging. FINDINGS: Bolus: Contrast bolus timing is adequate. PTE: No filling defect is present to suggest PTE. Mediastinum: Heart and great vessels appear normal. No pathologic mediastinal adenopathy. Lungs: Lungs are clear. Upper abdomen: Limited imaging of the upper abdomen shows nothing acute. Bones: Degenerative changes in the spine with nothing acute. IMPRESSION: Negative for PTE. Clear lungs. Signer Name: Benigno Villarreal MD Signed: 07/09/2019 11:10 AM Workstation Name: [id number] Transcribed By: REF Dictated By: BENIGNO VILLARREAL MD Electronically Authenticated By: BENIGNO VILLARREAL MD Signed Date/Time: 07/09/19 1110 DD/ 1104 TD/TT: [facility] [address] [place] [address] Cat Scan Report Signed Patient: LARRY MCDERMOTT MR# : [id number] : 1955 Acct:[id number] Age/Sex: 63 / M ADM Date: 07/09/19 Loc: ED Attending Dr: Ordering Physician: YEHUDA SINGH MD Date of Service: 07/09/19 Procedure(s): CT abdomen pelvis wo/w con Accession Number(s): [id number] cc: YEHUDA SINGH MD CT ABDOMEN AND PELVIS WITH CONTRAST HISTORY: left flank pain. COMPARISON: None. TECHNIQUE: CT images of the abdomen and pelvis were obtained following administration of intravenous contrast. All CT scans at this location are performed using CT dose reduction for ALARA by means of automated exposure control. CONTRAST: 100 ml of intravenous contrast administered. FINDINGS: Lungs/bones: Lung bases are clear. There are degenerative changes within the spine and pelvis with no acute osseous abnormality identified. Abdomen/pelvis: The liver, gallbladder, spleen, pancreas, adrenals, kidneys, and proximal GI tract appear unremarkable. No hydronephrosis or radiopaque urinary stone disease. The urinary bladder and prostate are unremarkable with no pelvic free fluid. No acute colonic abnormality identified. There is moderate diffuse colonic stool burden which may be seen with constipation. IMPRESSION: 1. No acute abnormality identified. 2. Incidental findings as above including probable constipation. Signer Name: Dewayne Parsons MD Signed: 07/09/2019 10:41 AM Workstation Name: [id number] Transcribed By: JW Dictated By: Dewayne Parsons MD Electronically Authenticated By: Dewayne Parsons MD Signed Date/Time: 07/09/19 1041 DD/ 1037 TD/TT: - Differential Diagnosis ACS, PE, aortic dissection, renal colic Critical care attestation.: If time is entered above; I have spent that time in minutes in the direct care of this critically ill patient, excluding procedure time. ED Disposition Clinical Impression: Chest pain, Left flank pain Disposition: OP ADMIT IP TO THIS HOSP Is pt being admited?: Yes Does the pt Need Aspirin: Yes Condition: Fair Instructions: Chest Pain (ED) Time of Disposition: 11:47 (hospitalist paged (Dr Dunn))
[2019-07-09 08:38] LABS: BUN/Creatinine Ratio 21; Blood Urea Nitrogen 21 mg/dL (9-20); Calcium 9.9 mg/dL (8.4-10.2); Hemolysis Index 8
[2019-07-09] MEDS ORDERED: ONDANSETRON 4 MG/2 ML INJ IV ONE (09:07)
[2019-07-09] MEDS ORDERED: MORPHINE 4 MG/1 ML INJ IV ONE (09:07)
[2019-07-09] MEDS ORDERED: ASPIRIN 325 MG TAB ONE (10:01)
[2019-07-09 10:31] LABS: Bilirubin,Urine NEG (Negative); Blood,Urine NEG (Negative); Color,Urine Straw (Yellow); Protein,Urine <15 mg/dL mg/dL (Negative); Urobilinogen,Urine < 2.0 mg/dL (<2.0); WBC,Urine < 1.0 /HPF (0.0-6.0)
--- NOTE | 2019-07-09 10:45 | Cat Scan Report ---
CT ABDOMEN AND PELVIS WITH CONTRAST HISTORY: left flank pain. COMPARISON: None. TECHNIQUE: CT images of the abdomen and pelvis were obtained following administration of intravenous contrast. All CT scans at this location are performed using CT dose reduction for ALARA by means of automated exposure control. CONTRAST: 100 ml of intravenous contrast administered. FINDINGS: Lungs/bones: Lung bases are clear. There are degenerative changes within the spine and pelvis with n o acute osseous abnormality identified. Abdomen/pelvis: The liver, gallbladder, spleen, pancreas, adrenals, kidneys, and proximal GI tract a ppear unremarkable. No hydronephrosis or radiopaque urinary stone disease. The urinary bladder and prostate are unremarkable with no pelvic free fluid. No acute colonic abnorma lity identified. There is moderate diffuse colonic stool burden which may be seen with constipation. IMPRESSION: 1. No acute abnormality identified. 2. Incidental findings as above including probable constipation. Signer Name: Dewayne Parsons MD Signed: 07/09/2019 10:41 AM Workstation Name: [id number]
--- NOTE | 2019-07-09 11:14 | Cat Scan Report ---
CTA CHEST WITH CONTRAST INDICATION : left CP. TECHNIQUE: Axial imaging performed through the chest, with contrast bolus timing set to maximize opa cification of the pulmonary arteries. 3-plane MIP reformatted images were obtained. All CT scans at this location are performed using CT dose reduction for ALARA by means of automated exposure control. 100 mL of intravenous contrast administered. Consent was obtained prior to the administration of the contrast. COMPARISON: No other relevant prior imaging. FINDINGS: Bolus: Contrast bolus timing is adequate. PTE: No filling defect is present to suggest PTE. Mediastinum: Heart and great vessels appear normal. No pathologic mediastinal adenopathy. Lungs: Lungs are clear. Upper abdomen: Limited imaging of the upper abdomen shows nothing acute. Bones: Degenerative changes in the spine with nothing acute. IMPRESSION: Negative for PTE. Clear lungs. Signer Name: Luca Murphy MD Signed: 07/09/2019 11:10 AM Workstation Name: [id number]
--- NOTE | 2019-07-09 11:51 | History and Physical Report ---
History of Present Illness Chief complaint: My chest hurts History of present illness: 63 YO Male with HTN, CVA, HLD, DM, CAD, Systolic CHF (EF 40%), CaP S/P Prostatectomy, HLD presents to ED for evaluation. Pt states that he has experienced pain in his chest over the past 1 days with worsening symptoms over the past 10 hours. Pt states that pain is 3-7/10, intermittent with increasing frequency and intensity, radiation to the left side, dull, worsened with exertion, relieved with rest. Pt acknowledges decreased exercise tolerance, dypsnea on exertion. Pt transported to [facility] via private vehicle. Pt seen and evaluated in ED and found to have Angina, as well as symptoms consistent with Diastolic CHF and stable Angina. Cardiology team consulted in ED and pending cardiac cath. Pt denies fever, chills, palpitations, NVD, Productive cough, skin rash, hemoptysis, unilateral leg swelling, calf pain, Individual/Family history of DVT/PE/Bleeding/Blood Clotting Disorders. Pt admitted to telemetry. No prior admission for review. All listed medication reconciled at time of admission. Past History Past Medical History: other (see hpi) Past Surgical History: Other (Prostatectomy, Left Shoulder) Social history: . denies: smoking, alcohol abuse, prescription drug abuse Family history: diabetes, hypertension Medications and Allergies Allergies Allergy/AdvReac Type Severity Reaction Status Date / Time No Known Allergies Allergy Verified 08/13/16 08:18 Home Medications Medication Instructions Recorded Confirmed Last Taken Type Aspirin BABY CHEW TAB 81 mg PO QAM 12/12/15 07/09/19 06/11/19 History 1 tab Atorvastatin 80 mg PO QHS 12/12/15 07/09/19 06/11/19 History 1 tab Lantus VIAL 16 units SQ QHS 12/12/15 07/09/19 06/11/19 History 1 tab Lisinopril 20 mg PO QHS 12/12/15 07/09/19 06/11/19 History 1 tab Ibuprofen [Motrin 600 MG tab] 600 mg PO Q8H PRN #30 tablet 12/13/15 07/09/19 11/07/17 Rx Latanoprost 0.005% 1 drop OP QPM 11/15/17 07/09/19 06/11/19 History 1 drop Meclizine [Antivert] 25 mg PO TID PRN #20 tablet 02/16/18 07/09/19 Unknown Rx Bicalutamide 50 mg PO DAILY 06/12/19 07/09/19 06/11/19 History 1 tab Ranolazine ER [Ranexa ER] 500 mg PO BID 07/09/19 07/09/19 Unknown History carvediloL [Coreg] 6.25 mg PO BID 07/09/19 07/09/19 Unknown History Review of Systems Constitutional: no weight loss, no weight gain, no fever, no chills Ears, nose, mouth and throat: no ear pain, no ear discharge, no tinnitis, no decreased hearing, no nose pain Cardiovascular: chest pain, shortness of breath, dyspnea on exertion, high blood pressure, decreased exercise tolerance, no palpitations, no syncope, no lightheadedness Respiratory: no cough, no cough with sputum, no excessive sputum, no hemoptysis Gastrointestinal: no abdominal pain, no nausea, no vomiting, no diarrhea Genitourinary Male: no hematuria, no flank pain, no discharge, no urinary frequency, no urinary hesitancy Rectal: no pain, no incontinence, no bleeding Musculoskeletal: no neck stiffness, no neck pain, no shooting arm pain, no arm numbness/tingling, no low back pain, no shooting leg pain Integumentary: no pruritis, no redness, no sores, no wounds, no jaundice Neurological: no transient paralysis, no paralysis, no weakness, no parathesias, no numbness, no tingling, no seizures Psychiatric: no anxiety, no memory loss, no change in sleep habits, no sleep disturbances, no insomnia, no change in libido, no suicidal ideation Endocrine: no cold intolerance, no heat intolerance, no polyphagia, no excessive thirst, no polydipsia, no polyuria, no nocturia Hematologic/Lymphatic: no easy bruising, no easy bleeding, no lymphadenopathy, no lymphedema Allergic/Immunologic: no urticaria, no allergic rhinitis, no persistent infections, no anaphylaxis Exam - Constitutional Vitals: Temp Pulse Resp BP Pulse Ox 98.4 F 85 17 132/77 96 07/09/19 07:51 07/09/19 10:00 07/09/19 10:00 07/09/19 10:00 07/09/19 10:00 General appearance: Present: mild distress - EENT Eyes: Present: PERRL ENT: hearing intact, clear oral mucosa - Neck Neck: Present: supple, normal ROM - Respiratory Respiratory effort: normal Respiratory: bilateral: CTA - Cardiovascular Heart Sounds: Present: S1 & S2. Absent: rub, click - Extremities Extremities: pulses symmetrical, No edema Peripheral Pulses: within normal limits - Abdominal General gastrointestinal: Present: soft, non-tender, non-distended, normal bowel sounds Male genitourinary: Present: normal - Integumentary Integumentary: Present: clear, warm, dry - Musculoskeletal Musculoskeletal: gait normal, strength equal bilaterally - Psychiatric Psychiatric: appropriate mood/affect, intact judgment & insight - Neurologic Neurologic: CNII-XII intact, moves all extremities Results - Labs CBC & Chem 7: 07/09/19 07:57 07/09/19 07:57 Labs: Abnormal lab results 07/09/19 07/09/19 07/09/19 Range/Units 07:57 07:57 10:11 WBC 4.3 L (4.5-11.0) K/mm3 [place] % (Auto) 8.6 H (0.0-7.3) % Eos % (Auto) 10.2 H (0.0-4.3) % Lymph # 0.9 L (1.2-5.4) K/mm3 Sodium 135 L (137-145) mmol/L Chloride 96.9 L (98-107) mmol/L BUN 21 H (9-20) mg/dL Glucose 227 H (75-100) mg/dL Ur Specific [place] 1.043 H (1.003-1.030) Assessment and Plan - Patient Problems (1) Angina at rest Current Visit: Yes Status: Acute Plan to address problem: Serial cardiac enzymes, ekg, telemetry, cardiac cath in am as per cardiology team, morphine, supplemental oxygen, nitro, aspirin. (2) CHF (congestive heart failure) Current Visit: Yes Status: Acute Qualifiers: Heart failure type: systolic Heart failure chronicity: acute on chronic Qualified Code(s): I50.23 - Acute on chronic systolic (congestive) heart failure Plan to address problem: Admit to telemetry, strict I/O, daily weight, cardiology consulted in ED, afterload reduction, blood pressure control, supplemental oxygen, pulse oximetry. (3) CAD (coronary artery disease) Current Visit: Yes Status: Acute Qualifiers: Associated angina: with stable angina Plan to address problem: risk factor reduction therapy, low cholesterol diet, statin therapy (4) HTN (hypertension) Current Visit: Yes Status: Acute Qualifiers: Hypertension type: essential hypertension Qualified Code(s): I10 - Essential (primary) hypertension Plan to address problem: Monitor BP q shift, supportive care. (5) Diabetes Current Visit: Yes Status: Acute Plan to address problem: ADA diet, insulin, accu check, hypoglycemia protocol (6) HLD (hyperlipidemia) Current Visit: Yes Status: Acute Qualifiers: Hyperlipidemia type: mixed hyperlipidemia Qualified Code(s): E78.2 - Mixed hyperlipidemia Plan to address problem: lowfat/low cholesterol diet, lipid panel, statin therapy (7) DVT prophylaxis Current Visit: Yes Status: Acute Plan to address problem: SCD to BLE while in bed, anticoagulation s/p cath in am
[2019-07-09] MEDS ORDERED: ACETAMINOPHEN 325 MG TAB PO PRN (11:53)
[2019-07-09] MEDS ORDERED: ALBUTEROL 2.5 MG/3 ML NEBU IH PRN (11:53)
[2019-07-09] MEDS ORDERED: MORPHINE 2 MG/1 ML INJ IV PRN (11:53)
[2019-07-09] MEDS ORDERED: ONDANSETRON 4 MG/2 ML INJ IV PRN (11:53)
[2019-07-09] MEDS ORDERED: IBUPROFEN 600 MG TAB PO PRN (11:55)
[2019-07-09] MEDS ORDERED: MECLIZINE 25 MG TAB PO PRN (11:55)
[2019-07-09 12:48] LABS: Free T4 (Free Thyroxine) 1.14 ng/dL (0.76-1.46)
--- NOTE | 2019-07-09 13:04 | Consultation ---
History of Present Illness Consult date: 07/09/19 Consult reason: chest pain History of present illness: This is a 63-year old male known to [facility] and has a history of small vessel coronary artery disease recommended for medical therapy by a cardiac catheterization a month ago. Ejection fraction 40-45%. Patient presents to the emergency department with chest pain and left flank pain. Cardiac consultation has been requested. A chest CT scan reports no evidence of pulmonary embolus. T here was an incidental finding of constipation on his abdominal CT, otherwise no acute abnormality identified. Cardiac enzymes are normal thus far and his ECG is benign. Medications and Allergies Allergies Allergy/AdvReac Type Severity Reaction Status Date / Time No Known Allergies Allergy Verified 08/13/16 08:18 Home Medications Medication Instructions Recorded Confirmed Last Taken Type Aspirin BABY CHEW TAB 81 mg PO QAM 12/12/15 07/09/19 06/11/19 History 1 tab Atorvastatin 80 mg PO QHS 12/12/15 07/09/19 06/11/19 History 1 tab Lantus VIAL 16 units SQ QHS 12/12/15 07/09/19 06/11/19 History 1 tab Lisinopril 20 mg PO QHS 12/12/15 07/09/19 06/11/19 History 1 tab Ibuprofen [Motrin 600 MG tab] 600 mg PO Q8H PRN #30 tablet 12/13/15 07/09/19 11/07/17 Rx Latanoprost 0.005% 1 drop OP QPM 11/15/17 07/09/19 06/11/19 History 1 drop Meclizine [Antivert] 25 mg PO TID PRN #20 tablet 02/16/18 07/09/19 Unknown Rx Bicalutamide 50 mg PO DAILY 06/12/19 07/09/19 06/11/19 History 1 tab Ranolazine ER [Ranexa ER] 500 mg PO BID 07/09/19 07/09/19 Unknown History carvediloL [Coreg] 6.25 mg PO BID 07/09/19 07/09/19 Unknown History Active Meds: Active Medications Acetaminophen (Tylenol) 650 mg PO Q4H PRN PRN Reason: Pain MILD(1-3)/Fever >100.5/DARDEN Albuterol (Proventil) 2.5 mg IH Q4HRT PRN PRN Reason: Shortness Of Breath Aspirin (Baby Aspirin) 81 mg PO QDAY [facility] Atorvastatin Calcium (Lipitor) 80 mg PO QHS [facility] Bicalutamide (Casodex) 50 mg PO DAILY [facility] Carvedilol (Coreg) 6.25 mg PO BID [facility] Ibuprofen (Ibuprofen) 600 mg PO Q8H PRN PRN Reason: Pain, Mild (1-3) Lisinopril (Zestril) 20 mg PO QHS [facility] Meclizine HCl (Antivert) 25 mg PO TID PRN PRN Reason: Vertigo Morphine Sulfate (Morphine) 2 mg IV Q4H PRN PRN Reason: Pain, Moderate (4-6) Ondansetron HCl (Zofran) 4 mg IV Q8H PRN PRN Reason: Nausea And Vomiting Ranolazine (Ranexa Er) 500 mg PO BID [facility] Sodium Chloride (Sodium Chloride Flush Syringe 10 Ml) 10 ml IV BID [facility] Sodium Chloride (Sodium Chloride Flush Syringe 10 Ml) 10 ml IV PRN PRN PRN Reason: LINE FLUSH Physical Examination Vital Signs Temp Pulse Resp BP Pulse Ox 98.4 F 100 H 16 139/86 99 07/09/19 07:51 07/09/19 07:51 07/09/19 07:51 07/09/19 07:51 07/09/19 07:51 General appearance: no acute distress HEENT: Positive: PERRL Neck: Positive: trachea midline Cardiac: Positive: Reg Rate and Rhythm Lungs: Positive: Decreased Breath Sounds Neuro: Positive: Weakness Extremities: Absent: edema Results 07/09/19 07:57 07/09/19 07:57 CBC 07/09/19 Range/Units 07:57 WBC 4.3 L (4.5-11.0) K/mm3 RBC 4.83 (3.65-5.03) M/mm3 Hgb 14.0 (11.8-15.2) gm/dl Hct 42.3 (35.5-45.6) % Plt Count 238 (140-440) K/mm3 Lymph # 0.9 L (1.2-5.4) K/mm3 [place] # 0.4 (0.0-0.8) K/mm3 Eos # 0.4 (0.0-0.4) K/mm3 Baso # 0.0 (0.0-0.1) K/mm3 Comprehensive Metabolic Panel 07/09/19 Range/Units 07:57 Sodium 135 L (137-145) mmol/L Potassium 5.0 (3.6-5.0) mmol/L Chloride 96.9 L (98-107) mmol/L Carbon Dioxide 25 (22-30) mmol/L BUN 21 H (9-20) mg/dL Creatinine 1.0 (0.8-1.5) mg/dL Glucose 227 H (75-100) mg/dL Calcium 9.9 (8.4-10.2) mg/dL
[2019-07-09] MEDS ORDERED: CLOPIDOGREL 300 MG TAB PO ONE (14:00)
[2019-07-09] MEDS ORDERED: NON-FORMULARY EACH (Atorvastatin 80 MG) PO SCH (22:00)
[2019-07-09] MEDS ORDERED: NON-FORMULARY EACH (Lisinopril 20 MG) PO SCH (22:00)
[2019-07-09] MEDS: LISINOPRIL 20 MG TAB PO SCH (22:06)
[2019-07-09] MEDS: carvediloL 6.25 MG TAB PO SCH (22:06)
[2019-07-09] MEDS: RANOLAZINE ER 500 MG TAB 12HR PO SCH (22:06)
[2019-07-10] MEDS ORDERED: INSULIN REGULAR, HUMAN 100 UNITS/1 ML SUB-Q ONE (02:39)
[2019-07-10 07:55] LABS: INR 0.96 (0.87-1.13)
[2019-07-10 08:26] LABS: Alanine Aminotransferase 13 units/L (7-56); Albumin 3.9 g/dL (3.9-5); BUN/Creatinine Ratio 20; Blood Urea Nitrogen 20 mg/dL (9-20); Calcium 9.5 mg/dL (8.4-10.2); Hemolysis Index 10
[2019-07-10] MEDS ORDERED: NON-FORMULARY EACH (Aspirin Baby Chew Tab 81 MG) PO SCH (10:00)
[2019-07-10] MEDS: CLOPIDOGREL 75 MG TAB PO SCH (11:16)
[2019-07-10] MEDS ORDERED: CLOPIDOGREL 75 MG TAB ONE ×2 (11:17→12:51)
[2019-07-10] MEDS ORDERED: ASPIRIN EC 81 MG TAB PO ONE (11:17)
[2019-07-10] MEDS ORDERED: HEPARIN/NS 5000 UNIT/500ML 1,000 ML IR ONE (11:35)
[2019-07-10] MEDS ORDERED: MIDAZOLAM 2 MG/2 ML INJ ONE (11:35)
[2019-07-10] MEDS ORDERED: fentaNYL 100 MCG/2 ML INJ ONE (11:36)
[2019-07-10] MEDS ORDERED: VERAPAMIL 5 MG/2 ML INJ ONE (11:36)
[2019-07-10] MEDS ORDERED: NITROGLYCERIN SYRINGE 3 ML ONE (11:36)
[2019-07-10] MEDS ORDERED: LIDOCAINE (2%) 20 MG/1 ML VIAL 20 ML MDV INFILTRATI ONE (11:36)
[2019-07-10] MEDS ORDERED: SODIUM CHLORIDE 0.9% 500 ML 500 ML IV SCH (11:39)
[2019-07-10] MEDS ORDERED: SODIUM CHLORIDE 0.9% 500 ML 500 ML ONE (11:39)
[2019-07-10] MEDS: HEPARIN 10,000 UNITS/10 ML VIAL ONE ×3 (12:19→12:50)
[2019-07-10] MEDS ORDERED: ALUM-MAG HYDROXIDE-SIMETHICONE 200-200-20MG/5ML ORAL LIQD 30 ML ONE (12:51)
--- NOTE | 2019-07-10 13:01 | Event Note ---
Date: 07/10/19 Successful angioplasty and stenting of the circumflex artery in its distal segment. Excellent angiographic result after deployment of a 2.5 x 18 mm drug- eluting stent. No complications. Patient will be observed overnight, anticipate discharge tomorrow on guideline directed medical therapy including aspirin and Plavix.
--- NOTE | 2019-07-10 13:04 | Cardiac Catherization Report ---
CORONARY ANGIOPLASTY REPORT REASON FOR PROCEDURE: The patient is a 63-year-old man with coronary artery disease. Two weeks ago, a cardiac catheterization revealed a 75-80% stenosis of the circumflex in its distal fragment. He was recommended to be treated medically. After several weeks of medical therapy, he presents to the hospital with recurrent chest pain. It was recommended to proceed with coronary intervention. PROCEDURES: 1. Limited left coronary angiography. 2. Coronary angioplasty and stenting of the distal circumflex. 3. Sedation time, start 12:18 and end 12:43. DESCRIPTION OF PROCEDURE: The patient was prepped and draped in a sterile fashion after informed consent. The right radial cath site was prepped and draped after a negative Judson's test. The right radial artery was entered using Seldinger technique followed by placement of a 6-Mohawk hydrophilic sheath. Routine radial cocktail was administered via the sheath. We selected a #[id number] guiding catheter and advanced to the left coronary ostium. Pre-intervention angiograms were taken. A 0.014 inch Metalizing Machine Operator Automatic 50 guidewire was then introduced into the circumflex, across the lesional segment. Predilatation balloon angioplasty was then performed using a 2.5 mm balloon catheter. We then deployed a 2.5 x 18 mm drug-eluting stent, covering the entire lesional segment. The stent was deployed to optimal pressures. Following stenting, there was an excellent angiographic result, 0 residual stenosis and JACK 3 flow maintained through the distal circumflex. The procedure was well tolerated by the patient and there were no complications. A small sub-branch that originated within the lesional segment remained patent. The catheters and the wires were removed, sheath removed and hemostasis achieved using a TR band. The patient was returned to the postprocedure unit in stable condition. There were no complications. CONCLUSION: Successful angioplasty and stenting of the distal circumflex artery and 80% stenosis was treated successfully with deployment of a 2.5 mm drug-eluting stent. Excellent angiographic result and no complications. JOB# [id number] PAULETTE/CLIFFORD
[2019-07-10] MEDS ORDERED: SODIUM CHLORIDE 0.9% 1000 ML 1,000 ML IV SCH (14:00)
[2019-07-10] MEDS: RANOLAZINE ER 500 MG TAB 12HR PO SCH ×2 (14:13→21:27)
[2019-07-10] MEDS: carvediloL 6.25 MG TAB PO SCH ×2 (14:13→21:27)
[2019-07-10] MEDS: ASPIRIN 81 MG TAB CHEW PO SCH (14:14)
[2019-07-10] MEDS: BICALUTAMIDE 50 MG TAB PO SCH (15:15)
--- NOTE | 2019-07-10 15:58 | Progress Note ---
Assessment and Plan Assessment and plan: Patient is a 63 YO Male with HTN, CVA, HLD, DM, CAD, Systolic CHF (EF 40%), CaP S/P Prostatectomy, HLD presents to ED for evaluation. Pt states that he has experienced pain in his chest over the past 1 days with worsening symptoms over the past 10 hours. Pt states that pain is 3-7/10, intermittent with increasing frequency and intensity, radiation to the left side, dull, worsened with exertion, relieved with rest. Pt acknowledges decreased exercise tolerance, dypsnea on exertion. Pt transported to [facility] via private vehicle. Pt seen and evaluated in ED and found to have Angina, as well as symptoms consistent with Diastolic CHF and stable Angina. Cardiology team consulted in ED and pending cardiac cath. Pt denies fever, chills, palpitations, NVD, Productive cough, skin rash, hemoptysis, unilateral leg swelling, calf pain, Individual/Family history of DVT/PE/Bleeding/Blood Clotting Disorders. Pt admitted to telemetry. No prior admission for review. All listed medication reconciled at time of admission. * LHC: Successful angioplasty and stenting of the circumflex artery in its distal segment. Excellent angiographic result after deployment of a 2.5 x 18 mm drug-eluting stent. No complications. Patient will be observed overnight, anticipate discharge tomorrow on guideline directed medical therapy including aspirin and Plavix. (1) Angina at rest Current Visit: Yes Status: Acute Plan to address problem: Serial cardiac enzymes, ekg, telemetry, cardiac cath in am as per cardiology team, morphine, supplemental oxygen, nitro, aspirin. (2) CHF (congestive heart failure),acute on chronic systolic Current Visit: Yes Status: Acute Qualifiers: Heart failure type: systolic Heart failure chronicity: acute on chronic Qualified Code(s): I50.23 - Acute on chronic systolic (congestive) heart failure Plan to address problem: Admit to telemetry, strict I/O, daily weight, cardiology consulted in ED, afterload reduction, blood pressure control, supplemental oxygen, pulse oximetry. (3) CAD (coronary artery disease) Current Visit: Yes Status: Acute Qualifiers: Associated angina: with stable angina Plan to address problem: risk factor reduction therapy, low cholesterol diet, statin therapy (4) HTN (hypertension) Current Visit: Yes Status: Acute Qualifiers: Hypertension type: essential hypertension Qualified Code(s): I10 - Essential (primary) hypertension Plan to address problem: Monitor BP q shift, supportive care. (5) Diabetes Current Visit: Yes Status: Acute Plan to address problem: ADA diet, insulin, accu check, hypoglycemia protocol (6) HLD (hyperlipidemia) Current Visit: Yes Status: Acute Qualifiers: Hyperlipidemia type: mixed hyperlipidemia Qualified Code(s): E78.2 - Mixed hyperlipidemia Plan to address problem: lowfat/low cholesterol diet, lipid panel, statin therapy (7) DVT prophylaxis Current Visit: Yes Status: Acute Plan to address problem: SCD to BLE while in bed, anticoagulation s/p cath History Interval history: Patient was seen and examined. Follow-up on current diagnosis of CP, recurrent. No overnight events reported to me. Patient denies any shortness breath, nausea/vomiting or severe headaches. Imaging, nursing note, chart, labs and old chart reviewed. Discussed with patient. Hospitalist Physical - Physical exam Narrative exam: Gen: WDWN, NAD, Awake, Alert, Orientated HEENT: NCAT, EOMI, PERRL, OP Clear Neck: supple, no adenopathy, no thyromegaly, no JVD CVS/Heart: RRR, normal S1S2, pulses present bilaterally Chest/Lungs: CTA B, Symmetrical chest expansion, good air entry bilaterally GI/Abdomen: soft, NTND, good bowel sounds, no guarding or rebound /Bladder: no suprapubic tenderness, no CVA or paraspinal tenderness Extermity/Skin: no c/c/e, no obvious rash MSK: FROM x 4 Neuro: CN 2-12 grossly intact, no new focal deficits Psych: calm - Constitutional Vitals: Temp Pulse Resp BP Pulse Ox 97.9 F 75 18 117/75 96 07/10/19 04:08 07/10/19 15:00 07/10/19 15:00 07/10/19 15:00 07/10/19 15:00 General appearance: Absent: mild distress Results - Labs CBC & Chem 7: 07/09/19 07:57 07/10/19 07:29 Labs: Laboratory Last Values WBC 4.3 K/mm3 (4.5-11.0) L 07/09/19 07:57 RBC 4.83 M/mm3 (3.65-5.03) 07/09/19 07:57 Hgb 14.0 gm/dl (11.8-15.2) 07/09/19 07:57 Hct 42.3 % (35.5-45.6) 07/09/19 07:57 MCV 88 fl (84-94) 07/09/19 07:57 MCH 29 pg (28-32) 07/09/19 07:57 MCHC 33 % (32-34) 07/09/19 07:57 RDW 14.1 % (13.2-15.2) 07/09/19 07:57 Plt Count 238 K/mm3 (140-440) 07/09/19 07:57 Lymph % (Auto) 20.0 % (13.4-35.0) 07/09/19 07:57 [place] % (Auto) 8.6 % (0.0-7.3) H 07/09/19 07:57 Eos % (Auto) 10.2 % (0.0-4.3) H 07/09/19 07:57 Baso % (Auto) 0.9 % (0.0-1.8) 07/09/19 07:57 Lymph # 0.9 K/mm3 (1.2-5.4) L 07/09/19 07:57 [place] # 0.4 K/mm3 (0.0-0.8) 07/09/19 07:57 Eos # 0.4 K/mm3 (0.0-0.4) 07/09/19 07:57 Baso # 0.0 K/mm3 (0.0-0.1) 07/09/19 07:57 Seg Neutrophils % 60.3 % (40.0-70.0) 07/09/19 07:57 Seg Neutrophils # 2.6 K/mm3 (1.8-7.7) 07/09/19 07:57 PT 12.7 Sec. (12.2-14.9) 07/10/19 07:29 INR 0.96 (0.87-1.13) 07/10/19 07:29 Sodium 138 mmol/L (137-145) 07/10/19 07:29 Potassium 4.3 mmol/L (3.6-5.0) 07/10/19 07:29 Chloride 98.8 mmol/L (98-107) 07/10/19 07:29 Carbon Dioxide 27 mmol/L (22-30) 07/10/19 07:29 Anion Gap 17 mmol/L 07/10/19 07:29 BUN 20 mg/dL (9-20) 07/10/19 07:29 Creatinine 1.0 mg/dL (0.8-1.5) 07/10/19 07:29 Estimated GFR > 60 ml/min 07/10/19 07:29 BUN/Creatinine Ratio 20 % 07/10/19 07:29 Glucose 143 mg/dL (75-100) H 07/10/19 07:29 POC Glucose 105 (70-105) 07/10/19 11:53 Calcium 9.5 mg/dL (8.4-10.2) 07/10/19 07:29 Magnesium 1.70 mg/dL (1.7-2.3) 07/09/19 Unknown Total Bilirubin 0.30 mg/dL (0.1-1.2) 07/10/19 07:29 AST 18 units/L (5-40) 07/10/19 07:29 ALT 13 units/L (7-56) 07/10/19 07:29 Alkaline Phosphatase 100 units/L (35-129) 07/10/19 07:29 Troponin T < 0.010 ng/mL (0.00-0.029) 07/09/19 14:04 NT-Pro-B Natriuret Pep 76.13 pg/mL (0-900) 07/09/19 Unknown Total Protein 7.0 g/dL (6.3-8.2) 07/10/19 07:29 Albumin 3.9 g/dL (3.9-5) 07/10/19 07:29 Albumin/Globulin Ratio 1.3 % 07/10/19 07:29 TSH 1.370 mlU/mL (0.270-4.200) 07/09/19 Unknown Free T4 1.14 ng/dL (0.76-1.46) 07/09/19 Unknown Urine Color Straw (Yellow) 07/09/19 10:11 Urine Turbidity Clear (Clear) 07/09/19 10:11 Urine pH 7.0 (5.0-7.0) 07/09/19 10:11 Ur Specific [place] 1.043 (1.003-1.030) H 07/09/19 10:11 Urine Protein <15 mg/dl mg/dL (Negative) 07/09/19 10:11 Urine Glucose (UA) Neg mg/dL (Negative) 07/09/19 10:11 Urine Ketones Neg mg/dL (Negative) 07/09/19 10:11 Urine Blood Neg (Negative) 07/09/19 10:11 Urine Nitrite Neg (Negative) 07/09/19 10:11 Urine Bilirubin Neg (Negative) 07/09/19 10:11 Urine Urobilinogen < 2.0 mg/dL (<2.0) 07/09/19 10:11 Ur Leukocyte Esterase Neg (Negative) 07/09/19 10:11 Urine WBC (Auto) < 1.0 /HPF (0.0-6.0) 07/09/19 10:11 Urine RBC (Auto) 1.0 /HPF (0.0-6.0) 07/09/19 10:11 Active Medications - Current Medications Current Medications: Generic Name Dose Route Start Last Admin Trade Name Freq PRN Reason Stop Dose Admin Acetaminophen 650 mg 07/09/19 11:53 Tylenol PO Q4H PRN Pain MILD(1-3)/Fever >100.5/DARDEN Albuterol 2.5 mg 07/09/19 11:53 Proventil IH Q4HRT PRN Shortness Of Breath Aspirin 81 mg 07/10/19 10:00 07/10/19 14:14 Baby Aspirin PO 81 mg QDAY GINNY Administration Atorvastatin Calcium 80 mg 07/09/19 22:00 07/09/19 22:07 Lipitor PO 80 mg QHS GINNY Administration Bicalutamide 50 mg 07/10/19 10:00 Casodex PO DAILY GIN[facility] Carvedilol 6.25 mg 07/09/19 22:00 07/10/19 14:13 Coreg PO 6.25 mg BID GINNY Administration Clopidogrel Bisulfate 75 mg 07/10/19 10:00 07/10/19 11:16 Plavix PO 75 mg QDAY GINNY Administration Sodium Chloride 500 mls @ 50 mls/hr 07/10/19 11:39 Nacl 0.9% 500 Ml IV DIRECT GINNY Sodium Chloride 1,000 mls @ 100 mls/hr 07/10/19 14:00 07/10/19 14:13 Nacl 0.9% 1000 Ml IV 07/10/19 21:59 100 mls/hr DIRECT GINNY Administration Ibuprofen 600 mg 07/09/19 11:55 07/09/19 22:55 Ibuprofen PO 600 mg Q8H PRN Administration Pain, Mild (1-3) Lisinopril 20 mg 07/09/19 22:00 07/09/19 22:06 Zestril PO 20 mg QHS GINNY Administration Meclizine HCl 25 mg 07/09/19 11:55 Antivert PO TID PRN Vertigo Morphine Sulfate 2 mg 07/09/19 11:53 Morphine IV Q4H PRN Pain, Moderate (4-6) Ondansetron HCl 4 mg 07/09/19 11:53 07/10/19 09:18 Zofran IV 4 mg Q8H PRN Administration Nausea And Vomiting Ranolazine 500 mg 07/09/19 22:00 07/10/19 14:13 Ranexa Er PO 500 mg BID GINNY Administration Sodium Chloride 10 ml 07/09/19 22:00 07/10/19 14:14 Sodium Chloride Flush Syringe 10 Ml IV 10 ml BID GINNY Administration Sodium Chloride 10 ml 07/09/19 11:53 Sodium Chloride Flush Syringe 10 Ml IV PRN PRN LINE FLUSH Nutrition/Malnutrition Assess - Dietary Evaluation Nutrition/Malnutrition Findings: Nutrition Notes Start: 07/10/19 11:10 Freq: Status: Active Protocol: Document 07/10/19 11:11 CT (Rec: 07/10/19 11:47 CT [id number]) Co-Sign 07/10/19 11:11 LM Nutrition Notes 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,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 Pt was waiting for a cath procedure and stated that he was very hungry. Pt did not want education at this time, handout and extension number was left in room. 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 Noted slight temporal wasting. 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 No Is Patient Ambulatory and/or Out of Bed Yes REE-([facility]-ambulatory/OOB) [ 1995.994 [id number]] Calculation Used for Recommendations [facility] Additional Notes Protein needs: 60-76 g/day (0. 8-1 g/kg/day) Fluid needs: 1 ml/kcal or per MD Nutrition Intervention Change Diet Order: Diet advancement per MD to Cardiac/Consistent CHO diet Teaching Recipient Patient Learning Readiness Poor Teaching Methods Handout Response to Teaching Refuses to learn Education Handouts Provided Heart Health Consistent CHO Barriers to Learning Physical RD phone number provided Yes Patient aware of follow up options Yes Goal #1 Meet >80% energy and protein needs via PO intakes Follow-Up By: 07/12/19 Additional Comments Follow up for PO intakes and cardiac/consistent CHO education
[2019-07-10] MEDS: INSULIN LISPRO 100 UNIT/ML SUB-Q SCH ×2 (18:23→22:40)
[2019-07-10] MEDS: LISINOPRIL 20 MG TAB PO SCH (21:28)
[2019-07-11] MEDS: INSULIN LISPRO 100 UNIT/ML SUB-Q SCH ×3 (00:43→12:53)
[2019-07-11 06:35] LABS: Basophils % (Auto) 0.8 % (0.0-1.8); Eosinophils # (Auto) 0.4 K/mm3 (0.0-0.4); Eosinophils % (Auto) 10.7 % (0.0-4.3); Hematocrit 39.1 % (35.5-45.6); Hemoglobin 12.9 gm/dl (11.8-15.2); Lymphocytes # (Auto) 0.6 K/mm3 (1.2-5.4); Mean Corpuscular HGB Conc 33 % (32-34); Mean Corpuscular Volume 88 fl (84-94); Monocytes # (Auto) 0.4 K/mm3 (0.0-0.8); Monocytes % (Auto) 9.7 % (0.0-7.3); Platelet Count 200 K/mm3 (140-440); Red Blood Count 4.45 M/mm3 (3.65-5.03); Red Cell Distribution Width 14.1 % (13.2-15.2)
[2019-07-11 06:59] LABS: Creatine Kinase MB 3.8 ng/mL (0.0-4.0)
[2019-07-11 07:03] LABS: BUN/Creatinine Ratio 22; Blood Urea Nitrogen 20 mg/dL (9-20); Calcium 8.9 mg/dL (8.4-10.2); Hemolysis Index 36
--- NOTE | 2019-07-11 08:18 | XRay Report ---
CHEST 1 VIEW INDICATION: post pci. COMPARISON: 12/12/2015. No recent comparison. FINDINGS: Support devices: None. Heart: Within normal limits. Lungs/Pleura: The lungs are mildly hyperexpanded and hyperlucent. No airspace disease or pleural effu jakub. No pneumothorax. Additional findings: Degenerative change in the spine. IMPRESSION: 1. No acute findings. Signer Name: Luca Murphy MD Signed: 07/11/2019 8:13 AM Workstation Name: [id number]
[2019-07-11] MEDS: carvediloL 6.25 MG TAB PO SCH (09:31)
[2019-07-11] MEDS: ASPIRIN 81 MG TAB CHEW PO SCH (09:31)
[2019-07-11] MEDS: RANOLAZINE ER 500 MG TAB 12HR PO SCH (09:31)
[2019-07-11] MEDS: CLOPIDOGREL 75 MG TAB PO SCH (09:31)
[2019-07-11] MEDS: BICALUTAMIDE 50 MG TAB PO SCH (09:32)
[2019-07-11 09:33] VITALS: BP 140/85
--- NOTE | 2019-07-11 11:52 | Progress Note ---
<CHUYITA SHAFFER - Last Filed: 07/11/19 11:53> Assessment and Plan Atypical chest pain s/p PCI of the Cx int he distal segment using drug eluting stents. Left flank pain Diabetes Continue medical therapy for coronary artery disease including plavix and aspirin without interruption. Stable for discharge home, cardiac santos. Patient will follow up with [facility] July 18 at 920. Subjective Date of service: 07/11/19 Interval history: Patient denies chest pain but complains of left flank pain. Dressing applied to right radial cath site. Objective Vital Signs Temp Pulse Resp BP BP Pulse Ox 07/11/19 09:31 82 140/85 07/11/19 03:37 97.6 F 74 18 118/72 99 07/11/19 01:00 74 07/10/19 23:06 97.7 F 67 18 130/62 99 07/10/19 21:28 74 111/61 07/10/19 21:27 74 111/61 07/10/19 19:15 98.2 F 74 18 111/61 99 07/10/19 16:25 18 106/58 07/10/19 16:20 84/40 07/10/19 16:00 75 106/58 07/10/19 15:16 114/63 07/10/19 15:00 75 18 117/75 96 07/10/19 14:26 74 18 106/62 95 07/10/19 14:25 117/75 07/10/19 14:13 78 108/62 07/10/19 14:12 108/62 07/10/19 13:48 73 18 114/73 95 07/10/19 13:41 114/67 - Physical Examination General: No Apparent Distress HEENT: Positive: PERRL Neck: Positive: trachea midline Cardiac: Positive: Reg Rate and Rhythm Lungs: Positive: Decreased Breath Sounds Neuro: Positive: Weakness Extremities: Absent: edema - Labs and Meds Cardiac Enzymes 07/11/19 Range/Units 05:59 CK-MB (CK-2) 3.8 (0.0-4.0) ng/mL CBC 07/11/19 Range/Units 05:59 WBC 4.0 L (4.5-11.0) K/mm3 RBC 4.45 (3.65-5.03) M/mm3 Hgb 12.9 (11.8-15.2) gm/dl Hct 39.1 (35.5-45.6) % Plt Count 200 (140-440) K/mm3 Lymph # 0.6 L (1.2-5.4) K/mm3 [place] # 0.4 (0.0-0.8) K/mm3 Eos # 0.4 (0.0-0.4) K/mm3 Baso # 0.0 (0.0-0.1) K/mm3 Comprehensive Metabolic Panel 07/11/19 Range/Units 05:59 Sodium 140 (137-145) mmol/L Potassium 4.9 (3.6-5.0) mmol/L Chloride 102.6 (98-107) mmol/L Carbon Dioxide 25 (22-30) mmol/L BUN 20 (9-20) mg/dL Creatinine 0.9 (0.8-1.5) mg/dL Glucose 177 H (75-100) mg/dL Calcium 8.9 (8.4-10.2) mg/dL <SARAH GONZALEZ - Last Filed: 07/14/19 10:36> Assessment and Plan I seen and evaluated the patient and agree with the assessment and plan. Patient presented with atypical chest pain and underwent PCI of left circumflex with placement of drug-eluting stents. At this time recommend continue current medical therapy. Patient should be on dual antiplatelet therapy for duration of at least 6 months
--- NOTE | 2019-07-11 15:25 | Discharge Summary ---
Providers - Providers Date of Admission: 07/09/19 11:53 Date of discharge: 07/11/19 Attending physician: TIANA FERREIRA 07/10/19 Consult to Cardiac Rehabilitation [CONS] Routine Reason For Exam: post pci 07/11/19 09:15 Consult to Dietitian/Nutrition [CONS] Routine Physician Instructions: Reason For Exam: heart healthy diet Reason for Consult: Diet education Primary care physician: ENGINE GENERATOR ASSEMBLER Hospitalization Condition: Stable Hospital course: Patient is a 63 YO Male with HTN, CVA, HLD, DM, CAD, Systolic CHF (EF 40%), CaP S/P Prostatectomy, HLD presents to ED for evaluation. Pt states that he has experienced pain in his chest over the past 1 days with worsening symptoms over the past 10 hours. Pt states that pain is 3-7/10, intermittent with increasing frequency and intensity, radiation to the left side, dull, worsened with exertion, relieved with rest. Pt acknowledges decreased exercise tolerance, dypsnea on exertion. Pt transported to [facility] via private vehicle. Pt seen and evaluated in ED and found to have Angina, as well as symptoms consistent with Diastolic CHF and stable Angina. Cardiology team consulted in ED and pending cardiac cath. Pt denies fever, chills, palpitations, NVD, Productive cough, skin rash, hemoptysis, unilateral leg swelling, calf pain, Individual/Family history of DVT/PE/Bleeding/Blood Clotting Disorders. Pt admitted to telemetry. No prior admission for review. All listed medication reconciled at time of admission. * LHC: Successful angioplasty and stenting of the circumflex artery in its distal segment. Excellent angiographic result after deployment of a 2.5 x 18 mm drug-eluting stent. No complications. Patient will be observed overnight, anticipate discharge on guideline directed medical therapy including aspirin and Plavix. Discharge Diagnoses: (1) Angina at rest, CAD ==>Unstable Angina Current Visit: Yes Status: Acute Plan to address problem: Serial cardiac enzymes, ekg, telemetry, cardiac cath in am as per cardiology team, morphine, supplemental oxygen, nitro, aspirin. (2) CHF (congestive heart failure),acute on chronic systolic Current Visit: Yes Status: Acute Qualifiers: Heart failure type: systolic Heart failure chronicity: acute on chronic Qualified Code(s): I50.23 - Acute on chronic systolic (congestive) heart failure Plan to address problem: Admit to telemetry, strict I/O, daily weight, cardiology consulted in ED, afterload reduction, blood pressure control, supplemental oxygen, pulse oximetry. (3) CAD (coronary artery disease) Current Visit: Yes Status: Acute Qualifiers: Associated angina: with stable angina Plan to address problem: risk factor reduction therapy, low cholesterol diet, statin therapy (4) HTN (hypertension) Current Visit: Yes Status: Acute Qualifiers: Hypertension type: essential hypertension Qualified Code(s): I10 - Essential (primary) hypertension Plan to address problem: Monitor BP q shift, supportive care. (5) Diabetes Current Visit: Yes Status: Acute Plan to address problem: ADA diet, insulin, accu check, hypoglycemia protocol (6) HLD (hyperlipidemia) Current Visit: Yes Status: Acute Qualifiers: Hyperlipidemia type: mixed hyperlipidemia Qualified Code(s): E78.2 - Mixed hyperlipidemia Plan to address problem: lowfat/low cholesterol diet, lipid panel, statin therapy (7) DVT prophylaxis Current Visit: Yes Status: Acute Plan to address problem: SCD to BLE while in bed, anticoagulation s/p cath Disposition: DC TO HOME OR SELFCARE Time spent for discharge: 34 minutes Core Measure Documentation - Palliative Care Palliative Care/ Comfort Measures: Not Applicable - Core Measures Any of the following diagnoses?: none - VTE Discharge Requirements Deep Vein Thrombosis/Pulmonary Embolism Present on Admission: No Has pt received <5 days of overlap therapy or INR<2.0: No Anticoagulant overlap therapy prescribed at discharge: No Contraindication No Overlap Therapy order at DC: Not Indicated Exam - Physical Exam Narrative exam: Gen: WDWN, NAD, Awake, Alert, Orientated HEENT: NCAT, EOMI, PERRL, OP Clear Neck: supple, no adenopathy, no thyromegaly, no JVD CVS/Heart: RRR, normal S1S2, pulses present bilaterally Chest/Lungs: CTA B, Symmetrical chest expansion, good air entry bilaterally GI/Abdomen: soft, NTND, good bowel sounds, no guarding or rebound /Bladder: no suprapubic tenderness, no CVA or paraspinal tenderness Extermity/Skin: no c/c/e, no obvious rash MSK: FROM x 4 Neuro: CN 2-12 grossly intact, no new focal deficits Psych: calm - Constitutional Vitals: Temp Pulse Resp BP Pulse Ox 97.6 F 82 18 140/85 99 11/20/19 03:37 07/11/19 09:31 07/11/19 03:37 07/11/19 09:31 07/11/19 03:37 Plan Activity: other (no strenous activity unless cleared by Security Screener) Diet: low salt Additional Instructions: [facility] July 18 at 920. Follow up with: ENEDELIA HARRY MD [Primary Care Provider] - 3-5 Days MASTER TALBOT MD [Staff Physician] - 07/18/19 9:20 am Prescriptions: Atorvastatin Calcium [Lipitor] 80 mg PO QHS #30 tablet Lisinopril [Zestril TAB] 20 mg PO QHS #30 tablet Aspirin [Aspirin BABY CHEW TAB] 81 mg PO QDAY #30 tab.chew carvediloL [Coreg] 6.25 mg PO BID #60 tablet Clopidogrel [Plavix] 75 mg PO QDAY #30 tablet Ranolazine [Ranexa] 500 mg PO BID #60 tab.er.12h
== END 2019-07-11 17:10 | disposition home or self-care (01) ==
LOC: ED 07:38 → 4A 11:53
PROVIDERS: ADMIT Internal Medicine; ATTEND Internal Medicine
DX: I25.118 Atherosclerotic heart disease of native coronary artery with other forms of angina pectoris (principal); I11.0 Hypertensive heart disease with heart failure; I50.23 Acute on chronic systolic (congestive) heart failure; E11.9 Type 2 diabetes mellitus without complications; E78.2 Mixed hyperlipidemia; E78.00 Pure hypercholesterolemia, unspecified; Z86.73 Personal history of transient ischemic attack (TIA), and cerebral infarction without residual deficits; Z85.46 Personal history of malignant neoplasm of prostate; Z90.79 Acquired absence of other genital organ(s); Z79.4 Long term (current) use of insulin; Z79.82 Long term (current) use of aspirin; Z79.899 Other long term (current) drug therapy
CPT/HCPCS: 36415; 71045; 71275; 74178; 80048; 80053; 81001; 82550; 82553; 82962; 83735; 83880; 84439; 84443; 84484; 85025; 85347; 85610; 93005; 93010; 96372; 96374; 96376; 99284; A9270; C1725; C1769; C1874; C1887; C1894; C9600; G0378; J1644; J2250; J2405; J3010; J7030; J7040; Q9967; 92928; J1815; J2270; J9999